=== PATIENT | male | born 1945 | race Caucasian/White ===

== ENCOUNTER 2018-03-19 19:50 | Emergency (ER) | payer MEDICARE, BC, OTHER ==
[~2018-03-19 19:50] MED LIST: ISOVUE-370 76%-LOCM 1 ML ONE
[2018-03-19 20:34] LABS: Bilirubin Negative (Negative); Blood, Urine Negative (Negative); Clarity CLEAR (Clear); Glucose, Urine (Dipstick) Negative (Negative); Leukocyte Negative (Negative); Nitrite Negative (Negative); Protein, Urine (Dipstick) Negative (Neg-Trace); Specific Gravity, Urine 1.011 (1.002-1.036); Urobilinogen 0.2 mg/dL (0.2-1.0)
[2018-03-19] MEDS ORDERED: Morphine 4 MG/ML VIAL ONE (21:13)
[2018-03-19] MEDS ORDERED: Ondansetron HCl/PF 4 MG/2 ML Vial ONE (21:13)
[2018-03-19 22:56] LABS: #Lymphocytes 1.1 thou/uL (1.20-3.40); #Monocytes 0.4 thou/uL (0.11-0.59); %Basophils 0.1 % (0.0-1.0); %Eosinophils 0.2 % (0.0-10.0); %Lymphocytes 20.7 % (21.0-51.0); %Monocytes 6.6 % (0.0-10.0); %Neutrophils 72.4 % (42.0-75.0); Hemoglobin 12.9 g/dL (14.0-18.0); Mean Corpuscular HGB CONC 34.1 g/dL (32.0-36.0); Mean Corpuscular Hemoglobin 36.1 pg (27.0-31.0); Mean Platelet Volume 9.3 fL (7.4-10.4); Platelet Count 239 thou/uL (130-400); RBC Distribution Width 12.9 % (11.5-14.5); Red Blood Cell (RBC) Count 3.58 mill/uL (4.70-6.10); White Blood Cell (WBC) Count 5.5 thou/uL (4.8-10.8)
[2018-03-19 23:15] LABS: ALT (SGPT) 19 U/L (8-55); AST (SGOT) 30 U/L (5-34); Albumin 3.8 g/dL (3.4-4.8); Alkaline Phosphatase 59 U/L (40-150); Anion Gap 15 mmol/L (10-20); BUN (Urea Nitrogen) 19 mg/dL (8.4-25.7); Bilirubin, Total 0.9 mg/dL (0.2-1.2); Calc. Creatinine Clearance 0 mL/min (70-130); Calcium 8.8 mg/dL (7.8-10.44); Carbon Dioxide 20 mmol/L (23-31); Chloride 106 mmol/L (98-107); Estimated GFR-MDRD 42; Globulin 3.4 g/dL (2.4-3.5); Glucose 94 mg/dL (83-110); Lipase 18 U/L (8-78); Protein, Total 7.2 g/dL (5.8-8.1); Sodium 137 mmol/L (136-145)
[2018-03-20] MEDS ORDERED: Ketorolac Tromethamine 30 MG/ML VIAL ONE (00:30)
--- NOTE | 2018-03-20 00:45 | CT ---
CT ABDOMEN WITH CONTRAST CT PELVIS WITH CONTRAST: DATE: 03/19/2018 TIME: 11:36 p.m. HISTORY: A 72-year-old male with left flank pain. COMPARISON: None. TECHNIQUE: IV injection of iodinated contrast media: Decreased dose of 60 mL administered due to low GFR. Oral contrast media: Not administered. FINDINGS: There is a large number of bilateral renal calculi of varying sizes. One of the largest ones is an 8 x 6 x 9 mm calculus, at a right renal upper pole calyx. Calculi are present throughout the upper, m id, and lower poles of both kidneys. The left kidney is larger than the right. There is mild dilati on of all the left renal calyces. The left nephrogram is delayed, compared to the right. There is a s mall to moderate amount of free fluid throughout the left perirenal space. This fluid-edema follows t he left ureter. There is a 5 x 5 x 5 mm calculus lodged within the bladder luminal side of the left UVJ, where there is focal bladder wall swelling. The urinary bladder has normal, thin lewis elsewher e. There are calcifications within the prostate gland. Cholecystectomy clips in the gallbladder fos sa. There is either mild diffuse intrahepatic biliary ductal dilation or edema following the portal triads throughout the liver parenchyma. No hepatic mass lesion or abscess. Atrophic pancreas.. No acute pancreatitis. Abdominal aorta and adrenals are unremarkable. Spleen is absent. No small holly l dilation. No pneumoperitoneum. No definitive evidence of colonic diverticulitis. Anterolisthesis of L5 on S1, stabilized by bilateral L5 and S1 pedicle screws. Laminectomy defect at L5-S1. IMPRESSION: 1. Positive for left-sided obstructive uropathy by a 5 mm calculus lodged at the left ureterovesical unction of the bladder, causing mild left hydronephrosis, delayed left nephrogram, and left perirena l fluid and periureteral fluid, which could represent extravasated urine due to pyelocalyceal blow-ou t. 2. Status post splenectomy. 3. Bilateral nephrolithiasis with a large number of renal calculi. 4. Status post posterior lumbar fusion hardware stabilizing a spondylolisthesis at L5-S1. 5. Status post laminectomy at L5-S1. 6. Status post cholecystectomy. FRANCISCO Rao POS: [facility]IVIDAD
== END 2018-03-20 00:45 | disposition home or self-care (01) ==
LOC: ERS 19:50
DX: N13.2 Hydronephrosis with renal and ureteral calculous obstruction (principal); I25.10 Atherosclerotic heart disease of native coronary artery without angina pectoris; E78.5 Hyperlipidemia, unspecified; Z79.899 Other long term (current) drug therapy; Z79.82 Long term (current) use of aspirin
CPT/HCPCS: 36415; 74177; 80053; 81003; 83690; 85025; 96361; 96374; 96375; J1885; J2270; J2405

== ENCOUNTER 2018-03-26 13:17 | Outpatient (CLI) | payer MEDICARE, BC, OTHER ==
[2018-03-26 14:47] LABS: Bilirubin Negative (Negative); Blood, Urine Negative (Negative); Clarity CLEAR (Clear); Glucose, Urine (Dipstick) Negative (Negative); Leukocyte Negative (Negative); Nitrite Negative (Negative); Protein, Urine (Dipstick) Negative (Neg-Trace); Specific Gravity, Urine 1.007 (1.002-1.036); Urobilinogen 0.2 mg/dL (0.2-1.0)
[2018-03-26 14:49] LABS: Bacteria/HPF None Seen HPF (None Seen); Hyaline Casts/LPF 0-3 HYALINE CAST LPF (0-3 Hyaline); RBC/HPF 0-3 HPF (0-3); Squamous Epithelial None Seen HPF (0-3); WBC/HPF 0-3 HPF (0-3)
[2018-03-26 14:55] LABS: PTT 31.2 SEC (22.9-36.1); Prothrombin Time 13.1 SEC (12.0-14.7)
[2018-03-26 15:02] LABS: Mean Corpuscular HGB CONC 32.9 g/dL (32.0-36.0); Mean Corpuscular Hemoglobin 34.6 pg (27.0-31.0); Mean Platelet Volume 9.1 fL (7.4-10.4); Platelet Count 265 thou/uL (130-400); RBC Distribution Width 13.2 % (11.5-14.5); Red Blood Cell (RBC) Count 3.76 mill/uL (4.70-6.10); White Blood Cell (WBC) Count 3.9 thou/uL (4.8-10.8)
[2018-03-26 15:40] LABS: Anion Gap 16 mmol/L (10-20); BUN (Urea Nitrogen) 16 mg/dL (8.4-25.7); Calc. Creatinine Clearance 0 mL/min (70-130); Calcium 9.7 mg/dL (7.8-10.44); Carbon Dioxide 21 mmol/L (23-31); Chloride 109 mmol/L (98-107); Estimated GFR-MDRD 70; Glucose 90 mg/dL (83-110); Potassium 5.5 mmol/L (3.5-5.1); Sodium 140 mmol/L (136-145)
== END 2018-03-26 13:18 | disposition home or self-care (01) ==
LOC: LABBT 13:17
PROVIDERS: ATTEND Urology
DX: Z01.818 Encounter for other preprocedural examination (principal); N20.0 Calculus of kidney; N40.1 Benign prostatic hyperplasia with lower urinary tract symptoms
CPT/HCPCS: 80048; 81001; 85027; 85610; 85730; 87086; 93005; 93010

== ENCOUNTER → 2018-03-29 | Day surgery (SDC) | payer MEDICARE, BC, OTHER ==
[2018-03-26 15:50] VITALS: BMI 25.7
[~2018-03-29] MED LIST changes: +Dexamethasone 20 MG/5 ML VIAL ONE; +Fentanyl 100 MCG/2 ML VIAL ONE; +Glycopyrrolate 0.2 MG/ML 5 ML SYRINGE ONE; -ISOVUE-370 76%-LOCM 1 ML ONE; +Iothalamate Meglumine 60% 50 ML VIAL FS ONE; +Levofloxacin 500 mg/D5W 100 ml Premix Bag ONE; +Lidocaine 1% PF 5 ML VIAL ONE; +Ondansetron HCl/PF 4 MG/2 ML Vial ONE; +PHENYLEPHRINE-NS 100 MCG/ML 10 ML SYRINGE ONE; +PROPOFOL 200 MG/20 ML VIAL ONE; +ePHEDrine/0.9% NaCl/PF SYRINGE 50 mg/10 ml ONE
[2018-03-29 10:43] LABS: Anion Gap 16 mmol/L (10-20); BUN (Urea Nitrogen) 20 mg/dL (8.4-25.7); Calc. Creatinine Clearance 84 mL/min (70-130); Calcium 9.8 mg/dL (7.8-10.44); Carbon Dioxide 22 mmol/L (23-31); Chloride 108 mmol/L (98-107); Estimated GFR-MDRD 70; Glucose 96 mg/dL (83-110); Potassium 4.7 mmol/L (3.5-5.1); Sodium 141 mmol/L (136-145)
--- NOTE | 2018-03-29 13:00 | OP ---
DATE OF PROCEDURE: 03/29/2018 SERVICE: Urology. SURGEON: Kris Laguna M.D. PREOPERATIVE DIAGNOSIS: Right renal stone. POSTOPERATIVE DIAGNOSIS: Right renal stone. PROCEDURE PERFORMED: Right ureteroscopy, laser lithotripsy, basket extraction of stones and placemen t of 6 x 26 double-J stent with left retrograde pyelogram. INDICATIONS FOR PROCEDURE: Mr. Marin is a 72-year-old white male who initially presented to the ER with left flank pain. He was found to have a 5-mm distal ureteral stone with a pelvocaliceal rupt ure. He ended up passing the stone on the left to his knowledge and on CT, he did have bilateral sto karen with larger stones on the right. We elected for prophylactic ureteroscopy with removal of stones . Risks and benefits of the surgery were discussed and he has agreed to proceed forward. DESCRIPTION OF PROCEDURE: After identification of arm and verification of consent, the patient was b rought back to the operating room where he underwent general anesthesia with an LMA. He was then mushtaq meghan in the dorsal lithotomy position and prepped and draped in usual sterile fashion. After appropri ate timeout, a lubricated 22-Moldovan rigid cystoscope was introduced per urethra into the bladder. At tention was turned to the right ureteral orifice, which was cannulated with a 0.035 sensor wire up to the level of the renal pelvis. The cystoscope was then used to empty the bladder and removed. A du al-lumen catheter was then advanced over the sensor wire into the level of the proximal ureter and a retrograde pyelogram performed, which demonstrated the location of the stone in a relatively isolated mary anne branching off an infundibulum of another mary anne. The Super Stiff wire was then placed through the second lumen of the dual lumen and then the dual lumen removed. A 11/13 x 46 cm ureteral access sheath was advanced over the Super Stiff wire to the level of the proximal ureter. The inner cannula and the Super Stiff wire were then removed leaving the outer sheath and the sensor wire in place as a safety wire. A flexible digital ureteroscope was then passed through the ureteral access sheath up into the renal pelvis and a full pyeloscopy performed. There were small stones located in each aravind x, most of which were just lasered off as they were extremely small. A few of these required basketi ng. We then made our way into the relatively difficult to access upper mary anne, which contained the la rger stones. Using a 200 micron laser fiber, these were lasered down into very small pieces. A few of the larger pieces were removed in their entirety with a 1.9-Moldovan Zero Tip nitinol basket. All f ragments that were over a millimeter were removed with 1.9-Moldovan Zero Tip nitinol basket. Upon comp letion, the mary anne was almost completely clear. There was some debris, but I felt this would pass on its own as they were too small to grab with the basket. Remainder of pyeloscopy did not demonstrate any other large or significant stone disease. Pull back ureteroscopy was employed and no additional stones were seen within the ureter. The cystoscope was then backloaded over the sensor wire back int o the bladder and a 6 x 26 double-J stent with no string attached was advanced over the sensor wire u p to the level of the renal pelvis. The wire was then removed leaving a good curl in the renal pelvi s and good curl in the bladder. The bladder was then emptied and refilled to clear the bladder and a ttention turned to the left ureter, which was cannulated with a dual-lumen catheter. A retrograde py elogram was performed, which demonstrated a normal caliber ureter and renal pelvis without hydronephr osis with sharp calices. An air bubble was noted in the ureter, which immediately cleared upon live fluoro and I did not feel there were any stones on this side within the ureter. He does have known 4 -5 mm stones up in the kidney on the right side, which we elected to deal with at a separate date. T he bladder was otherwise unremarkable without any significant stones. There are some scattered cellu les and grade II trabeculation. The prostate is hypertrophic and the urethra had no other strictures . The cystoscope was then removed after emptying the bladder and the patient awakened and taken to P ACU for recovery in stable condition. COMPLICATIONS: None. ESTIMATED BLOOD LOSS: Minimal. RETAINED TUBES AND DRAINS: A 6 x 26 double-J stent on the right. SPECIMENS: Stone for stone analysis. DISPOSITION: The patient will be discharged home and follow up with me in 1 week for cystoscopy and stent removal.
== END ==
LOC: SDC 07:32
PROVIDERS: ATTEND Urology
PROC: 0TF68ZZ Fragmentation in Right Ureter, Via Natural or Artificial Opening Endoscopic (ICD-10-PCS; principal; 2018-03-29)
PROC: 0T768DZ Dilation of Right Ureter with Intraluminal Device, Via Natural or Artificial Opening Endoscopic (ICD-10-PCS; 2018-03-29)
DX: N20.0 Calculus of kidney (principal); G61.0 Guillain-Barre syndrome; N40.0 Benign prostatic hyperplasia without lower urinary tract symptoms; Z86.73 Personal history of transient ischemic attack (TIA), and cerebral infarction without residual deficits; Z87.891 Personal history of nicotine dependence; Z79.82 Long term (current) use of aspirin; Z79.899 Other long term (current) drug therapy
CPT/HCPCS: 52356; 76000; 80048; 82365; 88300; C1769; 36415; 51798; J1100; J1956; J2001; J2405; J2704; J3010; Q9961

== ENCOUNTER 2018-05-16 08:40 | Outpatient (CLI) | payer MEDICARE, BC, OTHER ==
--- NOTE | 2018-05-16 09:01 | ULT ---
RENAL SONOGRAM: History: Renal insufficiency. FINDINGS: Right kidney is 10.8 cm without hydronephrosis. Shadowing echogenicity at the inferior pole is consis tent with a nonobstructing stone. Urinary bladder is unremarkable. Left kidney is 11.7 cm with a 1.7 cm cyst at the superior pole. Echogencities at the calices are appa rent with posterior shadowing. IMPRESSION: 1. Left renal cyst. 2. Nonobstructing bilateral renal calculi. POS: MARIA LUISA
== END 2018-05-16 08:41 | disposition home or self-care (01) ==
LOC: BICULT 08:40
PROVIDERS: ATTEND Urology
DX: N20.0 Calculus of kidney (principal); N28.1 Cyst of kidney, acquired
CPT/HCPCS: 76770

== ENCOUNTER 2018-05-24 09:39 | Outpatient (CLI) | payer MEDICARE, BC, OTHER ==
--- NOTE | 2018-05-24 10:17 | RAD ---
CERVICAL SPINE SERIES SEVEN VIEWS INCLUDING FLEXION AND EXTENSION AND OBLIQUE VIEWS: FINDINGS: The vertebral bodies are normal in height. There is degenerative disc narrowing at C5-6 and C6-7. The re are degenerative facet changes present. On flexion and extension views I do not appreciate any abn ormal motion. Oblique views show suggestion of some right sided foraminal narrowing at C5-6 and C6-7. IMPRESSION: Arthritic changes of the spine. POS: [facility]
--- NOTE | 2018-05-24 11:25 | MRI ---
MRI CERVICAL SPINE PERFORMED WITHOUT CONTRAST ENHANCEMENT: History: Neck pain with radiculopathy. Pain has been getting progressively worse. Comparison: 01-27-17 examination. FINDINGS: The vertebral bodies are normal in height. There is disc narrowing at the C5-6 and C6-7 levels. Cord signal change is normal. C2-3: Unremarkable. C3-4: No significant canal or foraminal stenosis. C4-5: There is some posterior osteophytic change at this level. Degenerative facet changes also prese nt with some borderline left foraminal narrowing. C5-6: There is posterior osteophytic bar and disc changes at this level. Uncal vertebral changes are also present. The canal shows a minimal degree of narrowing. There is mild bilateral foraminal narrow ing. I feel the changes are fairly similar to the previous exam. C6-7: No significant canal or foraminal stenosis at this level. C7-T1: Unremarkable. IMPRESSION: Posterior osteophytic changes at C5-6 also uncal vertebral changes causing some mild bilateral forami nal narrowing and some borderline canal stenosis. POS: NATIVIDAD
== END 2018-05-24 09:40 | disposition home or self-care (01) ==
LOC: BICMRI 09:39
PROVIDERS: ATTEND Anesthesiology Pain Medicine
DX: M47.22 Other spondylosis with radiculopathy, cervical region (principal); M46.92 Unspecified inflammatory spondylopathy, cervical region; M25.78 Osteophyte, vertebrae; M48.02 Spinal stenosis, cervical region
CPT/HCPCS: 72052; 72141

== ENCOUNTER 2020-10-30 17:57 | Inpatient (IN) | payer MEDICARE, BC, OTHER ==
[2020-10-30 19:00] LABS: Hemoglobin 10.2 g/dL (14.0-18.0); Mean Corpuscular Hemoglobin 36.6 pg (27.0-31.0); Platelet Count 376 thou/uL (130-400); RBC Distribution Width 14.8 % (11.5-14.5); Red Blood Cell (RBC) Count 2.78 mill/uL (4.70-6.10); White Blood Cell (WBC) Count 7.2 thou/uL (4.8-10.8)
[2020-10-30 19:21] LABS: Band 7 % (5-11); Eosinophils 2 % (0-10); Lymphocytes 21 % (21-51); MDiff Complete? YES; Macrocytosis SLIGHT = 6-15 cells (100X) (0-5/hpf); Monocytes 7 % (0-10); Neutrophil 55 % (42-75); Nucleated RBC 1 % (0); Reactive Lymphocytes 8 % (0-10); Rouleaux Formation SLIGHT = 1-5 cells (100X) (None Seen)
[2020-10-30 19:24] LABS: ALT (SGPT) 426 U/L (8-55); AST (SGOT) 573 U/L (5-34); Albumin 3.6 g/dL (3.4-4.8); Alkaline Phosphatase 157 U/L (40-110); Anion Gap 14 mmol/L (10-20); BUN (Urea Nitrogen) 58 mg/dL (8.4-25.7); Bilirubin, Total 0.4 mg/dL (0.2-1.2); Calc. Creatinine Clearance 0 mL/min (70-130); Calcium 10.3 mg/dL (7.8-10.44); Carbon Dioxide 24 mmol/L (23-31); Chloride 106 mmol/L (98-107); Globulin 4.4 g/dL (2.4-3.5); Glucose 110 mg/dL (83-110); Lipase 63 U/L (8-78); Magnesium 2.2 mg/dL (1.6-2.6); Sodium 139 mmol/L (136-145)
[2020-10-30 19:39] LABS: CK (CPK) 7817 U/L (30-200)
[2020-10-30 19:49] LABS: CKMB 54.7 ng/mL (0-6.6)
[2020-10-30] MEDS ORDERED: Morphine 4 MG/ML VIAL ONE (21:32)
[2020-10-30] MEDS ORDERED: Sodium Chloride 0.9% 1,000 ML IV SCH (22:00)
[2020-10-30] MEDS ORDERED: Ondansetron PF 4 MG/2 ML Vial IVP PRN ×2 (22:00→22:04)
[2020-10-30] MEDS ORDERED: Ondansetron ODT 4 MG TAB SL PRN (22:00)
[2020-10-30] MEDS ORDERED: Loperamide HCl 2 MG CAP PO PRN (22:04)
[2020-10-30] MEDS ORDERED: Guaifenesin DM 100-10/5 ML UDCUP PO PRN (22:04)
[2020-10-30] MEDS ORDERED: Calcium Carbonate 500 MG ChewTAB PO PRN (22:04)
[2020-10-30] MEDS ORDERED: Bisacodyl 10 MG SUPP PR PRN (22:04)
[2020-10-30 22:20] LABS: Bilirubin Negative (Negative); Blood, Urine 3+ (Negative); Clarity Clear (Clear); Glucose, Urine (Dipstick) Normal (Negative); Ketone, Urine Negative (Negative); Leukocyte Negative Leu/uL (Negative); Nitrite Negative (Negative); Protein, Urine (Dipstick) 50 mg/dL (Neg-Trace); RBC/HPF 0-3 HPF (0-3); Specific Gravity, Urine 1.011 (1.002-1.036); Squamous Epithelial 0-3 HPF (0-3); Urobilinogen Normal mg/dL (Less than 2); WBC/HPF 0-3 HPF (0-3); pH, Urine 5.5 (5.0-9.0)
[2020-10-30 22:23] LABS: Bacteria/HPF 1+ HPF (None Seen)
[2020-10-30] MEDS ORDERED: Ondansetron PF 4 MG/2 ML Vial ONE (22:49)
[2020-10-30] MEDS: Ondansetron ODT 4 MG TAB PO PRN (22:59)
[2020-10-30] MEDS: Sodium Chloride 0.9% 1,000 ML IV SCH (23:55)
[2020-10-31 01:30] LABS: Troponin I 0.053 ng/mL (< 0.028)
[2020-10-31 01:54] LABS: SARS-CoV-2 PCR by NAA Not Detected (NotDetected)
[2020-10-31] MEDS ORDERED: Acetaminophen 325 MG TAB ONE (04:08)
[2020-10-31] MEDS: Acetaminophen 325 MG TAB PO PRN ×3 (04:15→19:02)
[2020-10-31 05:37] LABS: ALT (SGPT) 354 U/L (8-55); AST (SGOT) 461 U/L (5-34); Albumin 3.2 g/dL (3.4-4.8); Alkaline Phosphatase 139 U/L (40-110); Anion Gap 16 mmol/L (10-20); BUN (Urea Nitrogen) 53 mg/dL (8.4-25.7); Bilirubin, Total 0.4 mg/dL (0.2-1.2); Calc. Creatinine Clearance 0 mL/min (70-130); Calcium 9.6 mg/dL (7.8-10.44); Carbon Dioxide 19 mmol/L (23-31); Chloride 111 mmol/L (98-107); Globulin 4.3 g/dL (2.4-3.5); Glucose 109 mg/dL (83-110); Potassium 4.8 mmol/L (3.5-5.1); Protein, Total 7.5 g/dL (5.8-8.1); Sodium 141 mmol/L (136-145)
[2020-10-31 05:46] LABS: #Eosinphils 0.1 thou/uL (0.0-0.7); #Lymphocytes 2.6 thou/uL (1.20-3.40); #Monocytes 0.4 thou/uL (0.11-0.59); #Neutrophils 3.8 thou/uL (1.40-6.50); %Basophils 0.2 % (0.0-1.0); %Eosinophils 1.5 % (0.0-10.0); %Lymphocytes 37.8 % (21.0-51.0); %Monocytes 5.6 % (0.0-10.0); Hemoglobin 9.4 g/dL (14.0-18.0); Mean Corpuscular HGB CONC 32.4 g/dL (32.0-36.0); Mean Corpuscular Hemoglobin 36.1 pg (27.0-31.0); Platelet Count 394 thou/uL (130-400); RBC Distribution Width 14.9 % (11.5-14.5)
[2020-10-31 05:51] LABS: CK (CPK) 6999 U/L (30-200)
[2020-10-31 05:57] LABS: Thyroid Stimulating Hormone 1.1499 uIU/mL (0.35-4.94)
[2020-10-31 05:58] LABS: HBSAg Index 0.14 S/CO (0-0.99); Hep B Surf Ag Non-Reactive S/CO (NonReactive); Hep C IgG Ab Non-Reactive (NonReactive); Hep C Index 0.04 S/CO (0-0.79)
[2020-10-31 05:59] LABS: Hep A IgM AB Non-Reactive (NonReactive); Hep A IgM S/CO 0.12 S/CO (0-0.79)
[2020-10-31 06:00] LABS: HBCM Index 0.06 S/CO (0-0.79); Hepatitis B Core IgM Abs Non-Reactive (NonReactive)
[2020-10-31] MEDS: Sodium Chloride 0.9% 1,000 ML IV SCH ×4 (07:30→23:21)
[2020-10-31] MEDS ORDERED: Acetaminophen 325 MG TAB PO PRN (08:56)
[2020-10-31] MEDS ORDERED: HYDROcodone/Acetaminophen 5/325 mg Tablet PO PRN (08:56)
[2020-10-31 09:24] LABS: Vitamin B12 681 pg/mL (211-911)
[2020-10-31] MEDS ORDERED: Famotidine 20 MG TAB ONE (09:29)
[2020-10-31] MEDS ORDERED: HYDROcodone/Acetaminophen 5/325 mg Tablet ONE (09:33)
[2020-10-31] MEDS: Famotidine 20 MG TAB PO SCH (09:37)
[2020-10-31] MEDS: Heparin 5,000 UNITS/ML VIAL SC SCH ×2 (09:38→21:19)
[2020-10-31] MEDS: Tamsulosin HCl 0.4 MG CAP PO SCH (09:43)
[2020-10-31] MEDS: Morphine 4 MG/ML VIAL SLOW IVP PRN ×3 (12:49→21:22)
[2020-10-31 13:09] VITALS: BMI 28.4
[2020-10-31] MEDS: Senokot S 8.6-50 MG TAB PO PRN (15:23)
[2020-10-31 21:33] LABS: Creatinine, Urine 46.06 mg/dL (63-166)
[2020-10-31 21:34] LABS: Protein, Urine Random Quant 39 mg/dL (1-14); Sodium, Urine 63 mmol/L (Not Available)
[2020-10-31] MEDS: HYDROcodone/Acetaminophen 7.5/325 mg Tablet PO PRN (23:19)
[2020-11-01 01:13] LABS: Anion Gap 11 mmol/L (10-20); BUN (Urea Nitrogen) 40 mg/dL (8.4-25.7); Calc. Creatinine Clearance 42 mL/min (70-130); Calcium 9.7 mg/dL (7.8-10.44); Carbon Dioxide 18 mmol/L (23-31); Chloride 116 mmol/L (98-107); Glucose 107 mg/dL (83-110); Potassium 4.4 mmol/L (3.5-5.1); Sodium 141 mmol/L (136-145)
[2020-11-01 01:18] LABS: Troponin I 0.118 ng/mL (< 0.028)
[2020-11-01 01:36] LABS: #Basophils 0.1 thou/uL (0.0-0.2); #Lymphocytes 1.2 thou/uL (1.20-3.40); #Monocytes 0.3 thou/uL (0.11-0.59); #Neutrophils 2.9 thou/uL (1.40-6.50); %Basophils 2.8 % (0.0-1.0); %Lymphocytes 25.5 % (21.0-51.0); %Monocytes 7.4 % (0.0-10.0); %Neutrophils 63.3 % (42.0-75.0); Hemoglobin 9.7 g/dL (14.0-18.0); Mean Corpuscular Hemoglobin 37.8 pg (27.0-31.0); Mean Platelet Volume 7.9 fL (7.4-10.4); Platelet Count 343 thou/uL (130-400); RBC Distribution Width 14.8 % (11.5-14.5); RBC Morphology Normal; Red Blood Cell (RBC) Count 2.55 mill/uL (4.70-6.10); White Blood Cell (WBC) Count 4.6 thou/uL (4.8-10.8)
[2020-11-01 01:41] LABS: Thyroid Stimulating Hormone 0.5385 uIU/mL (0.35-4.94)
[2020-11-01 03:29] LABS: T4 7.1 ug/dL (4.87-11.72)
[2020-11-01] MEDS: Ondansetron ODT 4 MG TAB PO PRN (04:37)
[2020-11-01 05:04] LABS: ALT (SGPT) 308 U/L (8-55); AST (SGOT) 321 U/L (5-34); Alkaline Phosphatase 117 U/L (40-110); Anion Gap 17 mmol/L (10-20); BUN (Urea Nitrogen) 37 mg/dL (8.4-25.7); Bilirubin, Total 0.5 mg/dL (0.2-1.2); CK (CPK) 3109 U/L (30-200); Calc. Creatinine Clearance 43 mL/min (70-130); Calcium 9.8 mg/dL (7.8-10.44); Carbon Dioxide 13 mmol/L (23-31); Chloride 117 mmol/L (98-107); Globulin 4.1 g/dL (2.4-3.5); Glucose 94 mg/dL (83-110); Potassium 4.9 mmol/L (3.5-5.1); Protein, Total 7.1 g/dL (5.8-8.1); Sodium 142 mmol/L (136-145)
[2020-11-01] MEDS: HYDROcodone/Acetaminophen 7.5/325 mg Tablet PO PRN (05:21)
[2020-11-01] MEDS: Sodium Chloride 0.9% 1,000 ML IV SCH ×4 (06:16→17:34)
[2020-11-01] MEDS ORDERED: Polyethylene Glycol 3350 17 GM Packet PO PRN (08:09)
[2020-11-01 08:34] LABS: Band 2 % (5-11); Eosinophils 1 % (0-10); Hemoglobin 9.6 g/dL (14.0-18.0); Lymphocytes 21 % (21-51); MDiff Complete? YES; Macrocytosis SLIGHT = 6-15 cells (100X) (0-5/hpf); Mean Corpuscular HGB CONC 33.2 g/dL (32.0-36.0); Mean Platelet Volume 8.1 fL (7.4-10.4); Monocytes 4 % (0-10); Neutrophil 72 % (42-75); Platelet Count 343 thou/uL (130-400); RBC Distribution Width 14.9 % (11.5-14.5); Red Blood Cell (RBC) Count 2.59 mill/uL (4.70-6.10); Spherocytes SLIGHT = 1-5 cells (100X) (None Seen); White Blood Cell (WBC) Count 6.2 thou/uL (4.8-10.8)
[2020-11-01] MEDS: Famotidine 20 MG TAB PO SCH (09:36)
[2020-11-01] MEDS: Tamsulosin HCl 0.4 MG CAP PO SCH (09:36)
[2020-11-01] MEDS: Allopurinol 100 MG TAB PO SCH (09:37)
[2020-11-01] MEDS: Pregabalin 50 MG CAP PO SCH ×3 (09:37→21:36)
[2020-11-01] MEDS: Docusate 100 MG CAP PO PRN (09:37)
[2020-11-01] MEDS: Apixaban 5 MG TAB PO SCH ×2 (09:38→21:38)
[2020-11-01] MEDS: HYDROcodone/Acetaminophen 10/325 mg Tablet PO PRN ×3 (13:07→21:37)
[2020-11-01] MEDS: Dronedarone HCl 400 MG TAB PO SCH (16:39)
[2020-11-01] MEDS: Sodium Bicarbonate Tab 325 MG TAB PO SCH (21:38)
[2020-11-02] MEDS: Sodium Chloride 0.9% 1,000 ML IV SCH ×4 (03:28→23:46)
[2020-11-02 04:51] LABS: Hemoglobin 9.3 g/dL (14.0-18.0); Mean Corpuscular HGB CONC 34.5 g/dL (32.0-36.0); Mean Corpuscular Hemoglobin 38.5 pg (27.0-31.0); Platelet Count 351 thou/uL (130-400); RBC Distribution Width 14.6 % (11.5-14.5)
[2020-11-02 05:05] LABS: ALT (SGPT) 220 U/L (8-55); AST (SGOT) 181 U/L (5-34); Albumin 2.7 g/dL (3.4-4.8); Alkaline Phosphatase 94 U/L (40-110); Anion Gap 12 mmol/L (10-20); BUN (Urea Nitrogen) 31 mg/dL (8.4-25.7); Bilirubin, Total 0.5 mg/dL (0.2-1.2); CK (CPK) 1533 U/L (30-200); Calc. Creatinine Clearance 47 mL/min (70-130); Calcium 9.4 mg/dL (7.8-10.44); Carbon Dioxide 18 mmol/L (23-31); Chloride 118 mmol/L (98-107); Globulin 3.4 g/dL (2.4-3.5); Glucose 88 mg/dL (83-110); Potassium 4.1 mmol/L (3.5-5.1); Protein, Total 6.1 g/dL (5.8-8.1); Sodium 144 mmol/L (136-145)
[2020-11-02 05:19] LABS: Band 2 % (5-11); Eosinophils 1 % (0-10); Lymphocytes 33 % (21-51); MDiff Complete? YES; Macrocytosis SLIGHT = 6-15 cells (100X) (0-5/hpf); Monocytes 11 % (0-10); Neutrophil 53 % (42-75)
[2020-11-02] MEDS: HYDROcodone/Acetaminophen 10/325 mg Tablet PO PRN ×4 (06:13→23:28)
[2020-11-02] MEDS: Dronedarone HCl 400 MG TAB PO SCH ×2 (09:00→17:05)
[2020-11-02] MEDS: Sodium Bicarbonate Tab 325 MG TAB PO SCH ×3 (09:00→20:06)
[2020-11-02] MEDS: Allopurinol 100 MG TAB PO SCH (09:01)
[2020-11-02] MEDS: Tamsulosin HCl 0.4 MG CAP PO SCH (09:01)
[2020-11-02] MEDS: Famotidine 20 MG TAB PO SCH (09:01)
[2020-11-02] MEDS: Pregabalin 50 MG CAP PO SCH ×3 (09:01→20:07)
[2020-11-02] MEDS: Apixaban 5 MG TAB PO SCH ×2 (09:02→20:06)
[2020-11-02] MEDS: Docusate 100 MG CAP PO PRN ×2 (09:03→17:05)
[2020-11-02] MEDS: Lidocaine 5% Patch TD SCH (20:14)
[2020-11-03] MEDS: Sodium Chloride 0.9% 1,000 ML IV SCH ×3 (03:40→16:21)
[2020-11-03] MEDS: HYDROcodone/Acetaminophen 10/325 mg Tablet PO PRN ×2 (03:41→08:29)
[2020-11-03 08:23] LABS: Anion Gap 18 mmol/L (10-20); BUN (Urea Nitrogen) 29 mg/dL (8.4-25.7); Calc. Creatinine Clearance 47 mL/min (70-130); Calcium 10.1 mg/dL (7.8-10.44); Carbon Dioxide 16 mmol/L (23-31); Chloride 112 mmol/L (98-107); Glucose 108 mg/dL (83-110); Potassium 4.9 mmol/L (3.5-5.1); Sodium 141 mmol/L (136-145)
[2020-11-03] MEDS: Dronedarone HCl 400 MG TAB PO SCH ×2 (08:27→16:20)
[2020-11-03] MEDS: Pregabalin 50 MG CAP PO SCH ×3 (08:28→19:58)
[2020-11-03] MEDS: Sodium Bicarbonate Tab 325 MG TAB PO SCH ×3 (08:28→19:59)
[2020-11-03] MEDS: Famotidine 20 MG TAB PO SCH (08:28)
[2020-11-03] MEDS: Allopurinol 100 MG TAB PO SCH (08:29)
[2020-11-03] MEDS: Tamsulosin HCl 0.4 MG CAP PO SCH (08:29)
[2020-11-03] MEDS: Apixaban 5 MG TAB PO SCH ×2 (08:29→19:59)
[2020-11-03] MEDS: Docusate 100 MG CAP PO PRN (08:31)
[2020-11-03] MEDS: Lidocaine Patch Removal TOP SCH (08:38)
[2020-11-03] MEDS: Acetaminophen 325 MG TAB PO PRN ×3 (15:10→23:55)
[2020-11-03 15:22] LABS: Albumin-Ur 10.4 % (.); Alpha 2 - Ur 21.6 % (.); Beta-Ur 43.4 % (.); Gamma-Ur 19.6 % (.); M-Spike,% Note: % (Not Observed)
[2020-11-03 15:22] LABS: A/G Ratio 0.7 (0.7-1.7); Albumin 2.9 g/dL (2.9-4.4); Alpha 1 0.3 g/dL (0.0-0.4); Alpha 2 0.8 g/dL (0.4-1.0); Beta 2.6 g/dL (0.7-1.3); Gamma 0.3 g/dL (0.4-1.8); Globulin, Total 4.1 g/dL (2.2-3.9); M-Spike 1.9 g/dL (Not Observed)
[2020-11-03] MEDS: cefTRIAXone\\ROCEPHIN 1 GM in Sodium Chloride 0.9% 100 ML IVPB SCH (18:03)
[2020-11-03 19:40] LABS: Bilirubin Negative (Negative); Blood, Urine 1+ (Negative); Clarity Clear (Clear); Glucose, Urine (Dipstick) Normal (Negative); Ketone, Urine Negative (Negative); Leukocyte Negative Leu/uL (Negative); Nitrite Negative (Negative); Protein, Urine (Dipstick) Negative (Neg-Trace); RBC/HPF 0-3 HPF (0-3); Squamous Epithelial None Seen HPF (0-3); Urobilinogen Normal mg/dL (Less than 2); WBC/HPF 0-3 HPF (0-3); pH, Urine 5.5 (5.0-9.0)
[2020-11-03 19:41] LABS: Bacteria/HPF 1+ HPF (None Seen)
[2020-11-03 19:42] LABS: Urine Culture Reflex Yes Yes
[2020-11-03] MEDS: Lidocaine 5% Patch TD SCH (19:59)
[2020-11-04] MEDS: Sodium Chloride 0.9% 1,000 ML IV SCH (03:15)
[2020-11-04] MEDS: HYDROcodone/Acetaminophen 10/325 mg Tablet PO PRN ×4 (03:28→19:30)
[2020-11-04 05:11] LABS: Anion Gap 15 mmol/L (10-20); BUN (Urea Nitrogen) 27 mg/dL (8.4-25.7); Calc. Creatinine Clearance 46 mL/min (70-130); Calcium 9.7 mg/dL (7.8-10.44); Carbon Dioxide 20 mmol/L (23-31); Chloride 111 mmol/L (98-107); Glucose 87 mg/dL (83-110); Potassium 3.8 mmol/L (3.5-5.1); Sodium 142 mmol/L (136-145)
[2020-11-04 05:45] LABS: Hemoglobin 8.7 g/dL (14.0-18.0); Mean Corpuscular HGB CONC 32.5 g/dL (32.0-36.0); Mean Platelet Volume 8.2 fL (7.4-10.4); Platelet Count 341 thou/uL (130-400); RBC Distribution Width 14.5 % (11.5-14.5); Red Blood Cell (RBC) Count 2.43 mill/uL (4.70-6.10); White Blood Cell (WBC) Count 5.2 thou/uL (4.8-10.8)
[2020-11-04 08:43] LABS: ALT (SGPT) 183 U/L (8-55); AST (SGOT) 121 U/L (5-34); Alkaline Phosphatase 87 U/L (40-110); Bilirubin, Direct 0.2 mg/dL (0.1-0.3); Bilirubin, Total 0.4 mg/dL (0.2-1.2); CK (CPK) 405 U/L (30-200); Protein, Total 6.3 g/dL (5.8-8.1)
[2020-11-04] MEDS: Acetaminophen 325 MG TAB PO PRN ×2 (08:57→16:21)
[2020-11-04] MEDS: Allopurinol 100 MG TAB PO SCH (08:58)
[2020-11-04] MEDS: Famotidine 20 MG TAB PO SCH (08:58)
[2020-11-04] MEDS: Tamsulosin HCl 0.4 MG CAP PO SCH (08:58)
[2020-11-04] MEDS: Apixaban 5 MG TAB PO SCH ×2 (08:58→20:15)
[2020-11-04] MEDS: Sodium Bicarbonate Tab 325 MG TAB PO SCH ×3 (08:58→20:15)
[2020-11-04] MEDS: Dronedarone HCl 400 MG TAB PO SCH ×2 (08:58→16:20)
[2020-11-04] MEDS: Pregabalin 50 MG CAP PO SCH ×3 (08:59→20:15)
[2020-11-04] MEDS: Lidocaine Patch Removal TOP SCH (09:00)
[2020-11-04] MEDS: Senokot S 8.6-50 MG TAB PO PRN (11:38)
[2020-11-04] MEDS: Docusate 100 MG CAP PO PRN (11:39)
[2020-11-04] MEDS: cefTRIAXone\\ROCEPHIN 1 GM in Sodium Chloride 0.9% 100 ML IVPB SCH (16:22)
[2020-11-04] MEDS: Lidocaine 5% Patch TD SCH (20:17)
[2020-11-04] MEDS: Piperacillin/Tazobactam 3.375 GM in Sodium Chloride 0.9% 100 ML IVPB SCH (21:45)
[2020-11-05] MEDS: Piperacillin/Tazobactam 3.375 GM in Sodium Chloride 0.9% 100 ML IVPB SCH ×3 (03:58→15:01)
[2020-11-05] MEDS: HYDROcodone/Acetaminophen 10/325 mg Tablet PO PRN ×3 (04:36→14:59)
[2020-11-05] MEDS: Senokot S 8.6-50 MG TAB PO PRN (08:43)
[2020-11-05] MEDS: Sodium Bicarbonate Tab 325 MG TAB PO SCH ×2 (08:43→14:59)
[2020-11-05] MEDS: Famotidine 20 MG TAB PO SCH (08:44)
[2020-11-05] MEDS: Apixaban 5 MG TAB PO SCH (08:44)
[2020-11-05] MEDS: Pregabalin 50 MG CAP PO SCH ×2 (08:44→15:00)
[2020-11-05] MEDS: Lidocaine Patch Removal TOP SCH (08:45)
[2020-11-05] MEDS: Allopurinol 100 MG TAB PO SCH (08:45)
[2020-11-05] MEDS: Tamsulosin HCl 0.4 MG CAP PO SCH (08:45)
[2020-11-05] MEDS: Dronedarone HCl 400 MG TAB PO SCH (08:45)
[2020-11-05 12:01] VITALS: BP 112/60; TEMP 98.1
[2020-11-05 13:03] LABS: Anion Gap 15 mmol/L (10-20); BUN (Urea Nitrogen) 32 mg/dL (8.4-25.7); Calc. Creatinine Clearance 45 mL/min (70-130); Calcium 8.4 mg/dL (7.8-10.44); Carbon Dioxide 22 mmol/L (23-31); Chloride 108 mmol/L (98-107); Glucose 99 mg/dL (83-110); Potassium 3.7 mmol/L (3.5-5.1); Sodium 141 mmol/L (136-145)
== END 2020-11-05 17:33 | disposition home or self-care (01) | DRG 682 ==
LOC: ERS 17:57 → ERHOLD 21:04 → 2NO 10-31 12:44
PROVIDERS: ADMIT Internal Medicine; ATTEND Internal Medicine
DX: N17.9 Acute kidney failure, unspecified (principal); I21.A1 Myocardial infarction type 2; M62.82 Rhabdomyolysis; G61.0 Guillain-Barre syndrome; E87.2 Acidosis; C90.00 Multiple myeloma not having achieved remission; I48.3 Typical atrial flutter; I48.19 Other persistent atrial fibrillation; C79.51 Secondary malignant neoplasm of bone; M84.58XA Pathological fracture in neoplastic disease, other specified site, initial encounter for fracture; I25.10 Atherosclerotic heart disease of native coronary artery without angina pectoris; E78.5 Hyperlipidemia, unspecified; E78.00 Pure hypercholesterolemia, unspecified; Z20.822 Contact with and (suspected) exposure to COVID-19; D53.9 Nutritional anemia, unspecified; G89.29 Other chronic pain; N18.4 Chronic kidney disease, stage 4 (severe); E87.5 Hyperkalemia; N40.0 Benign prostatic hyperplasia without lower urinary tract symptoms; I48.0 Paroxysmal atrial fibrillation; I12.9 Hypertensive chronic kidney disease with stage 1 through stage 4 chronic kidney disease, or unspecified chronic kidney disease; D63.0 Anemia in neoplastic disease; N13.2 Hydronephrosis with renal and ureteral calculous obstruction; K21.9 Gastro-esophageal reflux disease without esophagitis; E86.0 Dehydration; K59.00 Constipation, unspecified; Z95.5 Presence of coronary angioplasty implant and graft; Z90.49 Acquired absence of other specified parts of digestive tract; Z79.82 Long term (current) use of aspirin; Z79.899 Other long term (current) drug therapy; Z86.73 Personal history of transient ischemic attack (TIA), and cerebral infarction without residual deficits; Z98.1 Arthrodesis status
CPT/HCPCS: 36415; 36416; 71045; 71250; 74018; 74176; 76705; 80048; 80053; 80074; 80076; 81001; 81003; 81015; 82232; 82248; 82550; 82553; 82570; 82607; 82746; 83615; 83690; 83735; 83880; 83883; 84100; 84156; 84165; 84166; 84300; 84436; 84443; 84484; 84550; 85025; 85027; 86334; 87040; 87086; 87635; 93005; 93010; 93306; 96374; J0696; J1644; J2270; J2405; J2543; J3490; Q0162; U0003; U0005

== ENCOUNTER 2020-11-06 08:12 | Outpatient (CLI) | payer MEDICARE, BC, OTHER | END 2020-11-06 08:13 | disposition home or self-care (01) | LOC: PET 08:12 | PROVIDERS: ATTEND Internal Medicine Hematology & Oncology | DX: C90.00 Multiple myeloma not having achieved remission (principal); C79.51 Secondary malignant neoplasm of bone | CPT/HCPCS: 78816; A9552 ==

== ENCOUNTER 2020-11-11 08:14 | Day surgery (SDC) | payer MEDICARE, BC, OTHER ==
[2020-11-06 12:12] VITALS: BMI 28.2
[2020-11-11 08:54] LABS: INR-International Normal Ratio 1.3; Prothrombin Time 16.1 sec (12.0-14.7)
[2020-11-11 11:05] VITALS: BP 108/66; TEMP 98
== END 2020-11-11 12:00 | disposition home or self-care (01) ==
LOC: CT 08:14
PROVIDERS: ATTEND Internal Medicine Hematology & Oncology
PROC: 07DR3ZX Extraction of Iliac Bone Marrow, Percutaneous Approach, Diagnostic (ICD-10-PCS; principal; 2020-11-11)
DX: C90.00 Multiple myeloma not having achieved remission (principal); I48.91 Unspecified atrial fibrillation; M19.90 Unspecified osteoarthritis, unspecified site; K21.9 Gastro-esophageal reflux disease without esophagitis; G61.0 Guillain-Barre syndrome; Z86.73 Personal history of transient ischemic attack (TIA), and cerebral infarction without residual deficits; Z79.01 Long term (current) use of anticoagulants; Z79.82 Long term (current) use of aspirin; Z79.899 Other long term (current) drug therapy; Z95.5 Presence of coronary angioplasty implant and graft
CPT/HCPCS: 20225; 77012; 85097; 85610; 85730; 88184; 88237; 88264; 88280; 88305; 88311; 88313; 88342; 88365

== ENCOUNTER 2020-12-18 08:51 | Day surgery (SDC) | payer MEDICARE, BC, OTHER ==
[2020-12-18] MEDS ORDERED: Acetaminophen 500 MG TAB PO SCH (09:00)
[2020-12-18] MEDS ORDERED: diphenhydrAMINE 25 MG CAP PO SCH (09:00)
[2020-12-18] MEDS ORDERED: Sodium Chloride 0.9% 20 ML ONE (09:21)
[2020-12-18 12:17] VITALS: BP 96/52; TEMP 98.1
== END 2020-12-18 12:18 | disposition home or self-care (01) ==
LOC: ONC/OP 08:51
PROVIDERS: ATTEND Internal Medicine Hematology & Oncology
PROC: 30233N1 Transfusion of Nonautologous Red Blood Cells into Peripheral Vein, Percutaneous Approach (ICD-10-PCS; principal; 2020-12-18)
DX: D64.9 Anemia, unspecified (principal); D69.6 Thrombocytopenia, unspecified
CPT/HCPCS: 36430; 86850; 86900; 86901; J1642; P9016; Q0163

== ENCOUNTER 2021-08-03 12:04 | Outpatient (CLI) | payer MEDICARE, BC, OTHER ==
[2021-08-03 13:29] LABS: Hemoglobin 12.7 g/dL (13.5-17.5); Mean Corpuscular HGB CONC 32.2 g/dL (32.0-36.0); Mean Corpuscular Hemoglobin 34.5 pg (27.0-33.0); Mean Corpuscular Volume 107.3 fl (81.2-95.1); Mean Platelet Volume 10.8 fl (7.4-10.4); Platelet Count 257 10x3/uL (150-450); RBC Distribution Width 12.7 % (11.5-14.5); Red Blood Cell (RBC) Count 3.68 10x6/uL (4.32-5.72); White Blood Cell (WBC) Count 5.5 10x3/uL (3.5-10.5)
[2021-08-03 13:33] LABS: Prothrombin Time 11.1 sec (9.5-12.1)
[2021-08-03 13:40] LABS: Anion Gap 13 mmol/L (10-20); BUN (Urea Nitrogen) 24 mg/dL (8.4-25.7); Calc. Creatinine Clearance 0 mL/min (70-130); Carbon Dioxide 23 mmol/L (23-31); Chloride 110 mmol/L (98-107); Glucose 109 mg/dL (83-110); Sodium 141 mmol/L (136-145)
[2021-08-04 00:02] LABS: SARS-CoV-2 PCR by NAA Not Detected (NotDetected)
== END 2021-08-03 12:05 | disposition home or self-care (01) ==
LOC: LABBT 12:04
PROVIDERS: ATTEND Internal Medicine Cardiovascular Disease
DX: Z01.812 Encounter for preprocedural laboratory examination (principal); I48.3 Typical atrial flutter; Z20.822 Contact with and (suspected) exposure to COVID-19
CPT/HCPCS: 80048; 85027; 85610; U0003; U0005

== ENCOUNTER 2021-08-05 07:12 | Day surgery (SDC) | payer MEDICARE, BC, OTHER ==
[2021-08-02 15:16] VITALS: BMI 27.6
[2021-08-05] MEDS ORDERED: Heparin 10,000 UNITS/ 10 ML VIAL ONE (08:34)
[2021-08-05] MEDS ORDERED: Lidocaine 1% PF 5 ML VIAL ONE (09:36)
[2021-08-05] MEDS ORDERED: ePHEDrine 50 MG/ML VIAL ONE (09:36)
[2021-08-05] MEDS ORDERED: Propofol 500 MG/50 ML VIAL ONE (09:55)
[2021-08-05] MEDS ORDERED: PROPOFOL 20 ML ONE (10:35)
[2021-08-05] MEDS ORDERED: Fentanyl 100 MCG/2 ML VIAL ONE (11:47)
== END 2021-08-05 15:44 | disposition home or self-care (01) ==
LOC: SDC 07:12
PROVIDERS: ATTEND Internal Medicine Cardiovascular Disease
PROC: 4A023FZ Measurement of Cardiac Rhythm, Percutaneous Approach (ICD-10-PCS; principal; 2021-08-05)
PROC: 4A0234Z Measurement of Cardiac Electrical Activity, Percutaneous Approach (ICD-10-PCS; 2021-08-05)
PROC: 02583ZZ Destruction of Conduction Mechanism, Percutaneous Approach (ICD-10-PCS; 2021-08-05)
PROC: 02K83ZZ Map Conduction Mechanism, Percutaneous Approach (ICD-10-PCS; 2021-08-05)
PROC: B24BZZ4 Ultrasonography of Heart with Aorta, Transesophageal (ICD-10-PCS; 2021-08-05)
DX: I48.3 Typical atrial flutter (principal); I48.0 Paroxysmal atrial fibrillation; I25.10 Atherosclerotic heart disease of native coronary artery without angina pectoris; E78.5 Hyperlipidemia, unspecified; G89.29 Other chronic pain; M54.9 Dorsalgia, unspecified; Z79.01 Long term (current) use of anticoagulants; Z79.899 Other long term (current) drug therapy; Z87.891 Personal history of nicotine dependence; Z95.5 Presence of coronary angioplasty implant and graft
CPT/HCPCS: 93005; 93312; 93613; 93653; C1731; C1894; C2630; J1644; J2704; J3010; J3490

== ENCOUNTER 2022-01-13 10:15 | Outpatient (CLI) | payer MEDICARE, BC, OTHER | END 2022-01-13 10:16 | LOC: PET 10:15 | PROVIDERS: ATTEND Internal Medicine Hematology & Oncology | DX: C90.00 Multiple myeloma not having achieved remission (principal); C79.51 Secondary malignant neoplasm of bone; D70.1 Agranulocytosis secondary to cancer chemotherapy; T45.1X5A Adverse effect of antineoplastic and immunosuppressive drugs, initial encounter | CPT/HCPCS: 78816; A9552 ==

== ENCOUNTER 2022-01-13 12:56 | Outpatient (CLI) | payer MEDICARE, BC, OTHER | END 2022-01-13 12:57 | disposition home or self-care (01) | LOC: LABBT 12:56 | PROVIDERS: ATTEND Internal Medicine Hematology & Oncology | DX: Z20.822 Contact with and (suspected) exposure to COVID-19 (principal) | CPT/HCPCS: 87811 ==

== ENCOUNTER 2022-01-18 08:30 | Day surgery (SDC) | payer MEDICARE, BC, OTHER ==
[2022-01-17 14:56] VITALS: BMI 26.7
[2022-01-18 08:41] LABS: Hemoglobin 12.4 g/dL (14.0-18.0); Mean Corpuscular Hemoglobin 33.3 pg (27.0-31.0); Platelet Count 388 thou/uL (130-400); Red Blood Cell (RBC) Count 3.71 mill/uL (4.70-6.10); White Blood Cell (WBC) Count 12.1 thou/uL (4.8-10.8)
[2022-01-18 08:42] LABS: #Basophils 0.1 thou/uL (0.0-0.2); #Eosinphils 0.1 thou/uL (0.0-0.7); #Lymphocytes 5.2 thou/uL (1.20-3.40); #Neutrophils 5.8 thou/uL (1.40-6.50); %Basophils 0.8 % (0.0-1.0); %Eosinophils 0.6 % (0.0-10.0); %Lymphocytes 43.1 % (21.0-51.0); %Neutrophils 47.6 % (42.0-75.0)
[2022-01-18 08:58] LABS: PTT 32.3 sec (22.9-36.1); Prothrombin Time 13.1 sec (12.0-14.7)
[2022-01-18 09:02] LABS: MDiff Complete? YES; Macrocytosis SLIGHT = 6-15 cells (100X) (0-5/hpf); Platelet Morphology Comment Appears Adequate; Polychromasia SLIGHT = 2-3 cells (100X) (0-2/hpf)
[2022-01-18 09:17] VITALS: BP 110/60; TEMP 98.3
== END 2022-01-18 10:48 | disposition home or self-care (01) ==
LOC: CT 08:30
PROVIDERS: ATTEND Internal Medicine Hematology & Oncology
PROC: 07DR3ZX Extraction of Iliac Bone Marrow, Percutaneous Approach, Diagnostic (ICD-10-PCS; principal; 2022-01-18)
DX: C90.00 Multiple myeloma not having achieved remission (principal); C79.51 Secondary malignant neoplasm of bone; M19.90 Unspecified osteoarthritis, unspecified site; E78.5 Hyperlipidemia, unspecified; I10 Essential (primary) hypertension; I48.91 Unspecified atrial fibrillation; K21.9 Gastro-esophageal reflux disease without esophagitis; Z86.73 Personal history of transient ischemic attack (TIA), and cerebral infarction without residual deficits; Z79.01 Long term (current) use of anticoagulants; Z79.899 Other long term (current) drug therapy; Z95.5 Presence of coronary angioplasty implant and graft; D70.1 Agranulocytosis secondary to cancer chemotherapy; T45.1X5A Adverse effect of antineoplastic and immunosuppressive drugs, initial encounter
CPT/HCPCS: 20225; 36415; 77012; 83883; 84156; 84166; 85025; 85610; 85730; 86335; 88184; 88237; 88264; 88280

== ENCOUNTER 2022-03-31 13:00 | Outpatient (CLI) | payer MEDICARE, BC, OTHER ==
[2022-03-31 14:13] LABS: Hemoglobin 11.9 g/dL (13.5-17.5); Mean Corpuscular HGB CONC 33.6 g/dL (32.0-36.0); Mean Corpuscular Hemoglobin 31.3 pg (27.0-33.0); Mean Corpuscular Volume 93.2 fl (81.2-95.1); Mean Platelet Volume 11.4 fl (7.4-10.4); Platelet Count 276 10x3/uL (150-450); RBC Distribution Width 18.6 % (11.5-14.5); White Blood Cell (WBC) Count 6.2 10x3/uL (3.5-10.5)
[2022-03-31 14:29] LABS: Prothrombin Time 10.8 sec (9.5-12.1)
[2022-03-31 14:40] LABS: Anion Gap 14 mmol/L (10-20); BUN (Urea Nitrogen) 19 mg/dL (8.4-25.7); Calc. Creatinine Clearance 0 mL/min (70-130); Calcium 8.7 mg/dL (7.8-10.44); Carbon Dioxide 22 mmol/L (23-31); Chloride 109 mmol/L (98-107); Estimated GFR 67; Glucose 98 mg/dL (83-110); Potassium 4.5 mmol/L (3.5-5.1); Sodium 140 mmol/L (136-145)
== END 2022-03-31 13:01 | disposition home or self-care (01) ==
LOC: LABBT 13:00
PROVIDERS: ATTEND Internal Medicine Cardiovascular Disease
DX: Z01.812 Encounter for preprocedural laboratory examination (principal); Z20.822 Contact with and (suspected) exposure to COVID-19; C90.00 Multiple myeloma not having achieved remission; C79.51 Secondary malignant neoplasm of bone; D70.1 Agranulocytosis secondary to cancer chemotherapy; T45.1X5A Adverse effect of antineoplastic and immunosuppressive drugs, initial encounter
CPT/HCPCS: 36415; 80053; 82248; 83615; 84100; 84155; 84165; 84550; 85027; 85610; 87811

== ENCOUNTER 2022-04-05 05:32 | Day surgery (SDC) | payer MEDICARE, BC, OTHER ==
[2022-03-31 14:31] VITALS: BMI 26.2
[2022-04-05] MEDS ORDERED: fentaNYL Citrate/PF 100 MCG/2 ML SYRINGE ONE ×2 (06:39→11:21)
[2022-04-05] MEDS ORDERED: Heparin 25,000 units/D5W 500 ML ONE (06:46)
[2022-04-05] MEDS ORDERED: Protamine Sulfate 50 MG/5 ML VIAL ONE (06:46)
[2022-04-05] MEDS ORDERED: Heparin 10,000 UNITS/ 10 ML VIAL ONE ×2 (06:46→09:12)
[2022-04-05] MEDS ORDERED: Ondansetron PF 4 MG/2 ML Vial ONE (07:30)
[2022-04-05] MEDS ORDERED: PROPOFOL 200 MG/20 ML VIAL ONE (07:30)
[2022-04-05] MEDS ORDERED: ePHEDrine 50 MG/ML VIAL ONE (07:30)
[2022-04-05] MEDS ORDERED: PHENYLEPHRINE-NS 100 MCG/ML 10 ML SYRINGE ONE (07:30)
[2022-04-05] MEDS ORDERED: Rocuronium Bromide 10 MG/ML (10ML VIAL) ONE (07:30)
[2022-04-05] MEDS ORDERED: Dexamethasone 20 MG/5 ML VIAL ONE (07:30)
[2022-04-05] MEDS ORDERED: HYDROcodone/Acetaminophen 5/325 mg Tablet ONE (11:49)
== END 2022-04-05 14:10 | disposition home or self-care (01) ==
LOC: SDC 05:32
PROVIDERS: ATTEND Internal Medicine Cardiovascular Disease
DX: I48.0 Paroxysmal atrial fibrillation (principal); I48.3 Typical atrial flutter; Z20.822 Contact with and (suspected) exposure to COVID-19
CPT/HCPCS: 85347 ×2; 93005; 93312; 93655; 93656; C1730; C1731; C1732; C1759; C1760; C1769 ×3; C1894 ×5; C2630; J1100; J1644; J2405; J2704; J2720; J3490

== ENCOUNTER 2022-06-08 14:45 | Outpatient (CLI) | payer MEDICARE, BC, OTHER | END 2022-06-08 14:46 | disposition home or self-care (01) | LOC: BICRAD 14:45 | PROVIDERS: ATTEND Nurse Practitioner Acute Care | DX: C79.51 Secondary malignant neoplasm of bone (principal); C90.00 Multiple myeloma not having achieved remission; D70.1 Agranulocytosis secondary to cancer chemotherapy; T45.1X5A Adverse effect of antineoplastic and immunosuppressive drugs, initial encounter; J18.1 Lobar pneumonia, unspecified organism; S22.39XD Fracture of one rib, unspecified side, subsequent encounter for fracture with routine healing | CPT/HCPCS: 36415; 71046; 80053; 82248; 83615; 84100; 84155; 84165; 84550 ==

== ENCOUNTER 2022-10-05 21:15 | Inpatient (IN) | payer MEDICARE, BC, OTHER ==
[~2022-10-05 21:15] MED LIST changes: -Dexamethasone 20 MG/5 ML VIAL ONE; -Fentanyl 100 MCG/2 ML VIAL ONE; -Glycopyrrolate 0.2 MG/ML 5 ML SYRINGE ONE; +Iopamidol-370 76% 500 ML MDV (1 ML CHARGE) ONE; -Iothalamate Meglumine 60% 50 ML VIAL FS ONE; -Levofloxacin 500 mg/D5W 100 ml Premix Bag ONE; -Lidocaine 1% PF 5 ML VIAL ONE; -Ondansetron HCl/PF 4 MG/2 ML Vial ONE; -PHENYLEPHRINE-NS 100 MCG/ML 10 ML SYRINGE ONE; -PROPOFOL 200 MG/20 ML VIAL ONE; -ePHEDrine/0.9% NaCl/PF SYRINGE 50 mg/10 ml ONE
[2022-10-05] MEDS ORDERED: Ipratropium/Albuterol 3 ML NEB ONE (22:30)
[2022-10-05] MEDS ORDERED: methylPREDNISolone Sod Succ/PF 125 MG/2 ML VIAL ONE (22:30)
[2022-10-05] MEDS ORDERED: Azithromycin 500 MG VIAL ONE (22:30)
[2022-10-05 22:36] LABS: #Lymphocytes 1.5 thou/uL (1.20-3.40); #Monocytes 1.1 thou/uL (0.11-0.59); #Neutrophils 11.5 thou/uL (1.40-6.50); %Basophils 0.1 % (0.0-1.0); %Eosinophils 0.2 % (0.0-10.0); %Lymphocytes 10.3 % (21.0-51.0); %Neutrophils 81.4 % (42.0-75.0); Hemoglobin 12.8 g/dL (14.0-18.0); Mean Corpuscular HGB CONC 30.9 g/dL (32.0-36.0); Mean Corpuscular Hemoglobin 32.6 pg (27.0-31.0); Mean Platelet Volume 9.3 fL (7.4-10.4); Platelet Count 168 10x3/uL (130-400); RBC Distribution Width 17.2 % (11.5-14.5); Red Blood Cell (RBC) Count 3.92 mill/uL (4.70-6.10); White Blood Cell (WBC) Count 14.1 10x3/uL (4.8-10.8)
[2022-10-05 22:59] LABS: ALT (SGPT) 147 U/L (8-55); AST (SGOT) 142 U/L (5-34); Albumin 4.2 g/dL (3.4-4.8); Alkaline Phosphatase 83 U/L (40-110); Anion Gap 16 mmol/L (10-20); BUN (Urea Nitrogen) 25 mg/dL (8.4-25.7); Calc. Creatinine Clearance 0 mL/min (70-130); Calcium 9.2 mg/dL (7.8-10.44); Carbon Dioxide 20 mmol/L (23-31); Chloride 101 mmol/L (98-107); Estimated GFR 57; Glucose 135 mg/dL (83-110); Magnesium 2.1 mg/dL (1.6-2.6); Protein, Total 7.2 g/dL (5.8-8.1); Sodium 133 mmol/L (136-145)
[2022-10-05] MEDS ORDERED: cefTRIAXone (ROCEPHIN) 1 GM VIAL ONE (23:42)
[2022-10-06] MEDS ORDERED: Ondansetron ODT 4 MG TAB SL PRN (00:45)
[2022-10-06] MEDS ORDERED: Ondansetron PF 4 MG/2 ML Vial IVP PRN (00:45)
[2022-10-06] MEDS ORDERED: Vancomycin 1 GM/200 ML (FROZEN) BAG ONE (01:08)
[2022-10-06] MEDS ORDERED: Acetaminophen 325 MG TAB ONE (01:19)
[2022-10-06 01:55] LABS: Bacteria/HPF 1+ HPF (None Seen); Bilirubin Negative (Negative); Blood, Urine 1+ (Negative); Clarity Clear (Clear); Glucose, Urine (Dipstick) Normal (Negative); Ketone, Urine Negative (Negative); Leukocyte Negative Leu/uL (Negative); Mucous/LPF Rare LPF (<2+); Nitrite Negative (Negative); Protein, Urine (Dipstick) 100 mg/dL (Neg-Trace); RBC/HPF 0-3 HPF (0-3); Specific Gravity, Urine 1.036 (1.002-1.036); Squamous Epithelial 0-3 HPF (0-3); Urobilinogen Normal mg/dL (Less than 2); WBC/HPF 0-3 HPF (0-3)
[2022-10-06 02:05] LABS: SARS-CoV-2 NAA Rapid Test Not Detected (NotDetected)
[2022-10-06 02:10] LABS: #Lymphocytes 1.2 thou/uL (1.20-3.40); #Monocytes 0.6 thou/uL (0.11-0.59); #Neutrophils 11.7 thou/uL (1.40-6.50); %Basophils 0.2 % (0.0-1.0); %Eosinophils 0.1 % (0.0-10.0); %Lymphocytes 8.7 % (21.0-51.0); %Monocytes 4.3 % (0.0-10.0); %Neutrophils 86.8 % (42.0-75.0); Hemoglobin 12.2 g/dL (14.0-18.0); Mean Corpuscular HGB CONC 32.3 g/dL (32.0-36.0); Mean Corpuscular Hemoglobin 34.1 pg (27.0-31.0); Mean Platelet Volume 9.6 fL (7.4-10.4); Platelet Count 166 10x3/uL (130-400); RBC Distribution Width 17.1 % (11.5-14.5); Red Blood Cell (RBC) Count 3.58 mill/uL (4.70-6.10); White Blood Cell (WBC) Count 13.5 10x3/uL (4.8-10.8)
[2022-10-06 02:22] LABS: Lactic Acid 0.9 mmol/L (0.5-2.2)
[2022-10-06 02:31] LABS: ALT (SGPT) 125 U/L (8-55); AST (SGOT) 115 U/L (5-34); Albumin 3.8 g/dL (3.4-4.8); Alkaline Phosphatase 72 U/L (40-110); Anion Gap 16 mmol/L (10-20); BUN (Urea Nitrogen) 23 mg/dL (8.4-25.7); Bilirubin, Total 0.6 mg/dL (0.2-1.2); Calc. Creatinine Clearance 0 mL/min (70-130); Calcium 8.7 mg/dL (7.8-10.44); Carbon Dioxide 16 mmol/L (23-31); Chloride 104 mmol/L (98-107); Estimated GFR 72; Globulin 2.7 g/dL (2.4-3.5); Glucose 158 mg/dL (83-110); Potassium 4.1 mmol/L (3.5-5.1); Protein, Total 6.5 g/dL (5.8-8.1); Sodium 132 mmol/L (136-145)
[2022-10-06] MEDS: Sodium Chloride 0.9% 1,000 ML IV SCH ×3 (03:38→18:11)
[2022-10-06] MEDS ORDERED: traMADol HCl 50 MG TAB PO PRN (04:57)
[2022-10-06] MEDS: Apixaban 5 MG TAB PO SCH ×2 (09:01→20:32)
[2022-10-06] MEDS: Cefepime 1 GM in Sodium Chloride 0.9% 100 ML IVPB SCH ×2 (09:01→20:32)
[2022-10-06] MEDS: VANCOMYCIN 1.25 GM/250 ML BAG 1.25 GM in Premix Bag 1 BAG IVPB SCH (10:19)
[2022-10-06] MEDS: traMADol HCl 50 MG TAB PO PRN (11:13)
[2022-10-06] MEDS: HYDROcodone/Acetaminophen 10/325 mg Tablet PO PRN (14:05)
[2022-10-06] MEDS: Acetaminophen 500 MG TAB PO PRN (18:10)
[2022-10-06] MEDS: Rosuvastatin 20 MG TAB PO SCH (20:32)
[2022-10-06] MEDS: valACYclovir 500 MG TAB PO SCH (20:39)
[2022-10-07] MEDS: traMADol HCl 50 MG TAB PO PRN ×3 (00:19→20:11)
[2022-10-07] MEDS: Acetaminophen 500 MG TAB PO PRN ×3 (00:20→16:43)
[2022-10-07] MEDS: VANCOMYCIN 1.25 GM/250 ML BAG 1.25 GM in Premix Bag 1 BAG IVPB SCH ×3 (00:21→22:05)
[2022-10-07] MEDS: HYDROcodone/Acetaminophen 10/325 mg Tablet PO PRN ×2 (05:04→11:34)
[2022-10-07 06:02] VITALS: BMI 28.0
[2022-10-07 06:02] LABS: Anisocytosis SLIGHT = 6-15 cells (100X) (0-5/hpf); Band 1 % (5-11); Burr Cells SLIGHT = 2-5 cells (100X) (0-1/hpf); Hemoglobin 11.4 g/dL (14.0-18.0); Lymphocytes 13 % (21-51); MDiff Complete? YES; Macrocytosis MODERATE=16-30 cells (100X) (0-5/hpf); Mean Corpuscular HGB CONC 33.1 g/dL (32.0-36.0); Mean Corpuscular Hemoglobin 34.7 pg (27.0-31.0); Mean Platelet Volume 9.9 fL (7.4-10.4); Monocytes 6 % (0-10); Neutrophil 80 % (42-75); Ovalocytes SLIGHT = 2-5 cells (100X) (0-1/hpf); Platelet Count 134 10x3/uL (130-400); Platelet Morphology Comment Appears Adequate; RBC Distribution Width 17.1 % (11.5-14.5); Red Blood Cell (RBC) Count 3.28 mill/uL (4.70-6.10); Target Cells SLIGHT = 2-5 cells (100X) (0-1/hpf); White Blood Cell (WBC) Count 17.7 10x3/uL (4.8-10.8)
[2022-10-07 06:03] LABS: ALT (SGPT) 83 U/L (8-55); AST (SGOT) 72 U/L (5-34); Albumin 3.5 g/dL (3.4-4.8); Alkaline Phosphatase 64 U/L (40-110); Anion Gap 14 mmol/L (10-20); BUN (Urea Nitrogen) 19 mg/dL (8.4-25.7); Bilirubin, Total 0.6 mg/dL (0.2-1.2); Calc. Creatinine Clearance 110 mL/min (70-130); Calcium 8.3 mg/dL (7.8-10.44); Carbon Dioxide 18 mmol/L (23-31); Chloride 107 mmol/L (98-107); Estimated GFR 92; Globulin 2.4 g/dL (2.4-3.5); Glucose 117 mg/dL (83-110); Potassium 3.9 mmol/L (3.5-5.1); Protein, Total 5.9 g/dL (5.8-8.1); Sodium 135 mmol/L (136-145)
[2022-10-07] MEDS: Cefepime 1 GM in Sodium Chloride 0.9% 100 ML IVPB SCH (06:39)
[2022-10-07] MEDS: Sodium Chloride 0.9% 1,000 ML IV SCH ×2 (06:41→16:46)
[2022-10-07] MEDS: Pregabalin 50 MG CAP PO SCH (10:30)
[2022-10-07] MEDS: valACYclovir 500 MG TAB PO SCH ×2 (10:30→20:12)
[2022-10-07] MEDS: Tamsulosin HCl 0.4 MG CAP PO SCH ×2 (10:30→16:35)
[2022-10-07] MEDS: Apixaban 5 MG TAB PO SCH ×2 (10:31→20:12)
[2022-10-07] MEDS: Multivit, Therapeutic 1 TAB PO SCH (10:31)
[2022-10-07 10:51] LABS: Vancomycin, Trough 15.1 ug/mL
[2022-10-07] MEDS ORDERED: Magnevist 469MG/ML 20 ML VIAL ONE ×2 (11:38)
[2022-10-07] MEDS: Morphine 4 MG/ML VIAL SLOW IVP PRN (17:38)
[2022-10-07] MEDS ORDERED: SUMAtriptan Succinate 6 MG/0.5 ML VIAL SC SCH (19:45)
[2022-10-07] MEDS: Rosuvastatin 20 MG TAB PO SCH (20:12)
[2022-10-07] MEDS ORDERED: Cefepime 2 GM in Sodium Chloride 0.9% 100 ML IVPB SCH (21:00)
[2022-10-07] MEDS ORDERED: diphenhydrAMINE 50 MG/ML VIAL IVP SCH (21:30)
[2022-10-07] MEDS ORDERED: Metoclopramide HCl 10 MG/2 ML VIAL IVP SCH (21:30)
[2022-10-08] MEDS: Acetaminophen 500 MG TAB PO PRN ×3 (00:44→16:13)
[2022-10-08 01:00] LABS: #Basophils 0.1 thou/uL (0.0-0.2); #Lymphocytes 4.1 thou/uL (1.20-3.40); #Monocytes 1.4 thou/uL (0.11-0.59); #Neutrophils 9.8 thou/uL (1.40-6.50); %Basophils 0.4 % (0.0-1.0); %Eosinophils 0.1 % (0.0-10.0); %Lymphocytes 26.8 % (21.0-51.0); %Monocytes 8.9 % (0.0-10.0); %Neutrophils 63.9 % (42.0-75.0); Hemoglobin 12.8 g/dL (14.0-18.0); Mean Corpuscular HGB CONC 32.3 g/dL (32.0-36.0); Mean Corpuscular Hemoglobin 34.1 pg (27.0-31.0); Mean Platelet Volume 9.7 fL (7.4-10.4); Platelet Count 149 10x3/uL (130-400); RBC Distribution Width 17.2 % (11.5-14.5); Red Blood Cell (RBC) Count 3.76 mill/uL (4.70-6.10); White Blood Cell (WBC) Count 15.3 10x3/uL (4.8-10.8)
[2022-10-08 01:22] LABS: Magnesium 1.9 mg/dL (1.6-2.6)
[2022-10-08 01:28] LABS: Troponin I 0.031 ng/mL (< 0.028)
[2022-10-08] MEDS ORDERED: Sodium Chloride 0.9% 500 ML IV SCH (01:45)
[2022-10-08] MEDS: Sodium Chloride 0.9% 1,000 ML IV SCH ×2 (02:51→21:32)
[2022-10-08 03:23] LABS: Anion Gap 20 mmol/L (10-20); BUN (Urea Nitrogen) 13 mg/dL (8.4-25.7); Calc. Creatinine Clearance 102 mL/min (70-130); Calcium 9.1 mg/dL (7.8-10.44); Carbon Dioxide 14 mmol/L (23-31); Chloride 104 mmol/L (98-107); Estimated GFR 90; Glucose 104 mg/dL (83-110); Potassium 3.6 mmol/L (3.5-5.1); Sodium 134 mmol/L (136-145)
[2022-10-08] MEDS ORDERED: Magnesium 2 GM/50 ML(in water) 2 GM in Premix Bag 1 BAG IVPB SCH (04:15)
[2022-10-08 05:38] LABS: Lactic Acid 1.5 mmol/L (0.5-2.2)
[2022-10-08 05:53] LABS: Troponin I 0.038 ng/mL (< 0.028)
[2022-10-08] MEDS: Morphine 4 MG/ML VIAL SLOW IVP PRN ×2 (08:29→14:00)
[2022-10-08] MEDS: Tamsulosin HCl 0.4 MG CAP PO SCH (08:43)
[2022-10-08] MEDS: Apixaban 5 MG TAB PO SCH ×2 (08:43→21:33)
[2022-10-08] MEDS: Multivit, Therapeutic 1 TAB PO SCH (08:43)
[2022-10-08] MEDS: Pregabalin 50 MG CAP PO SCH (08:44)
[2022-10-08] MEDS: valACYclovir 500 MG TAB PO SCH ×2 (08:45→21:33)
[2022-10-08] MEDS: VANCOMYCIN 1.25 GM/250 ML BAG 1.25 GM in Premix Bag 1 BAG IVPB SCH (12:03)
[2022-10-08] MEDS: traMADol HCl 50 MG TAB PO PRN (12:19)
[2022-10-08] MEDS ORDERED: Naproxen 500 MG TAB PO SCH (15:15)
[2022-10-08] MEDS ORDERED: AMPicillin 2 GM in Sodium Chloride 0.9% 100 ML IVPB SCH ×2 (18:15→23:59)
[2022-10-08] MEDS: cefTRIAXone\\ROCEPHIN 2 GM in Sodium Chloride 0.9% 100 ML IVPB SCH (21:32)
[2022-10-08] MEDS: Rosuvastatin 20 MG TAB PO SCH (21:33)
[2022-10-08] MEDS: AMPicillin 2 GM in Sodium Chloride 0.9% 100 ML IVPB SCH (23:59)
[2022-10-09] MEDS: AMPicillin 2 GM in Sodium Chloride 0.9% 100 ML IVPB SCH ×2 (03:32→06:27)
[2022-10-09] MEDS: Morphine 4 MG/ML VIAL SLOW IVP PRN ×4 (03:45→23:18)
[2022-10-09 06:15] LABS: ALT (SGPT) 80 U/L (8-55); AST (SGOT) 80 U/L (5-34); Albumin 3.8 g/dL (3.4-4.8); Alkaline Phosphatase 69 U/L (40-110); Anion Gap 17 mmol/L (10-20); BUN (Urea Nitrogen) 11 mg/dL (8.4-25.7); Bilirubin, Total 0.6 mg/dL (0.2-1.2); Calc. Creatinine Clearance 118 mL/min (70-130); Calcium 8.7 mg/dL (7.8-10.44); Carbon Dioxide 16 mmol/L (23-31); Chloride 107 mmol/L (98-107); Estimated GFR 94; Globulin 2.7 g/dL (2.4-3.5); Glucose 104 mg/dL (83-110); Potassium 3.4 mmol/L (3.5-5.1); Protein, Total 6.5 g/dL (5.8-8.1); Sodium 137 mmol/L (136-145)
[2022-10-09 06:35] LABS: Anisocytosis MODERATE=16-30 cells (100X) (0-5/hpf); Hemoglobin 13.1 g/dL (14.0-18.0); Lymphocytes 13 % (21-51); MDiff Complete? YES; Macrocytosis MODERATE=16-30 cells (100X) (0-5/hpf); Mean Corpuscular HGB CONC 32.4 g/dL (32.0-36.0); Mean Platelet Volume 10.3 fL (7.4-10.4); Monocytes 3 % (0-10); Neutrophil 84 % (42-75); Ovalocytes SLIGHT = 2-5 cells (100X) (0-1/hpf); Platelet Count 136 10x3/uL (130-400); Platelet Morphology Comment Appears Adequate; RBC Distribution Width 17.1 % (11.5-14.5); Red Blood Cell (RBC) Count 3.86 mill/uL (4.70-6.10); Target Cells SLIGHT = 2-5 cells (100X) (0-1/hpf)
[2022-10-09] MEDS: cefTRIAXone\\ROCEPHIN 2 GM in Sodium Chloride 0.9% 100 ML IVPB SCH ×2 (08:26→20:50)
[2022-10-09] MEDS: HYDROcodone/Acetaminophen 10/325 mg Tablet PO PRN ×2 (08:27→21:13)
[2022-10-09] MEDS: Apixaban 5 MG TAB PO SCH ×2 (08:27→20:50)
[2022-10-09] MEDS: valACYclovir 500 MG TAB PO SCH ×2 (08:27→20:50)
[2022-10-09] MEDS: Pregabalin 50 MG CAP PO SCH ×2 (08:27→09:28)
[2022-10-09] MEDS: Tamsulosin HCl 0.4 MG CAP PO SCH (08:27)
[2022-10-09] MEDS: Multivit, Therapeutic 1 TAB PO SCH (08:27)
[2022-10-09] MEDS: Sodium Chloride 0.9% 1,000 ML IV SCH ×2 (09:25→22:21)
[2022-10-09] MEDS: Ampicillin 2 GM in Sodium Chloride 0.9% 100 ML IVPB SCH ×4 (09:30→22:18)
[2022-10-09] MEDS ORDERED: Potassium Chloride 20 MEQ TAB PO SCH (10:00)
[2022-10-09 10:22] LABS: Vancomycin, Trough 9.3 ug/mL
[2022-10-09] MEDS ORDERED: diphenhydrAMINE 12.5 MG in Sodium Chloride 0.9% 50 ML IVPB SCH (12:15)
[2022-10-09] MEDS: Rosuvastatin 20 MG TAB PO SCH (20:50)
[2022-10-10] MEDS: Ampicillin 2 GM in Sodium Chloride 0.9% 100 ML IVPB SCH ×6 (02:23→23:10)
[2022-10-10] MEDS: Morphine 4 MG/ML VIAL SLOW IVP PRN ×2 (03:50→07:50)
[2022-10-10 05:47] LABS: ALT (SGPT) 101 U/L (8-55); AST (SGOT) 105 U/L (5-34); Albumin 3.3 g/dL (3.4-4.8); Alkaline Phosphatase 63 U/L (40-110); Anion Gap 12 mmol/L (10-20); BUN (Urea Nitrogen) 8 mg/dL (8.4-25.7); Bilirubin, Total 0.5 mg/dL (0.2-1.2); Calc. Creatinine Clearance 121 mL/min (70-130); Calcium 7.9 mg/dL (7.8-10.44); Carbon Dioxide 21 mmol/L (23-31); Chloride 108 mmol/L (98-107); Estimated GFR 94; Globulin 2.4 g/dL (2.4-3.5); Glucose 102 mg/dL (83-110); Potassium 3.4 mmol/L (3.5-5.1); Protein, Total 5.7 g/dL (5.8-8.1); Sodium 138 mmol/L (136-145)
[2022-10-10 05:48] LABS: Hemoglobin 11.7 g/dL (14.0-18.0); Hypochromia SLIGHT = 6-15 cells (100X) (0-5/hpf); Lymphocytes 13 % (21-51); MDiff Complete? YES; Macrocytosis SLIGHT = 6-15 cells (100X) (0-5/hpf); Mean Corpuscular HGB CONC 33.2 g/dL (32.0-36.0); Mean Corpuscular Hemoglobin 34.2 pg (27.0-31.0); Mean Platelet Volume 9.8 fL (7.4-10.4); Monocytes 18 % (0-10); Neutrophil 67 % (42-75); Platelet Count 172 10x3/uL (130-400); Platelet Morphology Comment Appears Adequate; RBC Distribution Width 16.8 % (11.5-14.5); Reactive Lymphocytes 2 % (0-10); Red Blood Cell (RBC) Count 3.43 mill/uL (4.70-6.10); White Blood Cell (WBC) Count 10.1 10x3/uL (4.8-10.8)
[2022-10-10] MEDS: cefTRIAXone\\ROCEPHIN 2 GM in Sodium Chloride 0.9% 100 ML IVPB SCH ×2 (07:49→20:30)
[2022-10-10] MEDS: Tamsulosin HCl 0.4 MG CAP PO SCH (07:51)
[2022-10-10] MEDS: Apixaban 5 MG TAB PO SCH ×2 (07:51→20:31)
[2022-10-10] MEDS: Pregabalin 50 MG CAP PO SCH (07:51)
[2022-10-10] MEDS: Multivit, Therapeutic 1 TAB PO SCH (07:51)
[2022-10-10] MEDS: valACYclovir 500 MG TAB PO SCH ×2 (07:52→20:31)
[2022-10-10] MEDS ORDERED: diphenhydrAMINE 25 MG CAP PO SCH (10:30)
[2022-10-10] MEDS ORDERED: Lidocaine 1% PF 5 ML VIAL ONE ×2 (12:16→12:28)
[2022-10-10] MEDS ORDERED: PHENYLEPHRINE-NS 100 MCG/ML 10 ML SYRINGE ONE (12:16)
[2022-10-10] MEDS ORDERED: PROPOFOL 40 ML ONE (12:16)
[2022-10-10] MEDS ORDERED: PROPOFOL 200 MG/20 ML VIAL ONE (12:28)
[2022-10-10] MEDS: Sodium Chloride 0.9% 1,000 ML IV SCH (13:31)
[2022-10-10] MEDS: HYDROcodone/Acetaminophen 10/325 mg Tablet PO PRN (18:31)
[2022-10-10] MEDS ORDERED: Tamsulosin HCl 0.4 MG CAP PO SCH (21:30)
[2022-10-10] MEDS: traMADol HCl 50 MG TAB PO PRN (23:09)
[2022-10-11] MEDS ORDERED: diphenhydrAMINE 50 MG/ML VIAL IVP SCH ×2 (00:30→15:30)
[2022-10-11] MEDS: Ampicillin 2 GM in Sodium Chloride 0.9% 100 ML IVPB SCH ×6 (02:48→22:26)
[2022-10-11] MEDS: Sodium Chloride 0.9% 1,000 ML IV SCH (02:49)
[2022-10-11] MEDS ORDERED: Ketorolac Tromethamine 30 MG/ML VIAL IVP SCH (04:00)
[2022-10-11] MEDS: HYDROcodone/Acetaminophen 10/325 mg Tablet PO PRN ×2 (05:12→11:28)
[2022-10-11 05:50] LABS: ALT (SGPT) 94 U/L (8-55); AST (SGOT) 83 U/L (5-34); Albumin 3.3 g/dL (3.4-4.8); Alkaline Phosphatase 66 U/L (40-110); Anion Gap 14 mmol/L (10-20); BUN (Urea Nitrogen) 7 mg/dL (8.4-25.7); Bilirubin, Total 0.5 mg/dL (0.2-1.2); Calc. Creatinine Clearance 130 mL/min (70-130); Carbon Dioxide 19 mmol/L (23-31); Chloride 109 mmol/L (98-107); Estimated GFR 97; Globulin 2.5 g/dL (2.4-3.5); Glucose 96 mg/dL (83-110); Potassium 3.1 mmol/L (3.5-5.1); Protein, Total 5.8 g/dL (5.8-8.1); Sodium 139 mmol/L (136-145)
[2022-10-11 05:53] LABS: Anisocytosis SLIGHT = 6-15 cells (100X) (0-5/hpf); Burr Cells SLIGHT = 2-5 cells (100X) (0-1/hpf); Hemoglobin 12.5 g/dL (14.0-18.0); Lymphocytes 18 % (21-51); MDiff Complete? YES; Macrocytosis MODERATE=16-30 cells (100X) (0-5/hpf); Mean Platelet Volume 9.6 fL (7.4-10.4); Monocytes 14 % (0-10); Neutrophil 68 % (42-75); Ovalocytes SLIGHT = 2-5 cells (100X) (0-1/hpf); Platelet Count 201 10x3/uL (130-400); Platelet Morphology Comment Appears Adequate; RBC Distribution Width 17.1 % (11.5-14.5); Red Blood Cell (RBC) Count 3.56 mill/uL (4.70-6.10); White Blood Cell (WBC) Count 9.4 10x3/uL (4.8-10.8)
[2022-10-11] MEDS: cefTRIAXone\\ROCEPHIN 2 GM in Sodium Chloride 0.9% 100 ML IVPB SCH ×2 (08:11→20:51)
[2022-10-11] MEDS: Morphine 2 MG/ML VIAL SLOW IVP PRN (08:14)
[2022-10-11] MEDS: Apixaban 5 MG TAB PO SCH ×2 (08:21→20:50)
[2022-10-11] MEDS: Pregabalin 50 MG CAP PO SCH (08:21)
[2022-10-11] MEDS: Allopurinol 100 MG TAB PO SCH (08:22)
[2022-10-11] MEDS: Potassium Chloride 20 MEQ TAB PO SCH ×2 (08:23→16:20)
[2022-10-11] MEDS: valACYclovir 500 MG TAB PO SCH ×2 (08:23→20:50)
[2022-10-11] MEDS: traMADol HCl 50 MG TAB PO PRN (09:32)
[2022-10-11] MEDS: Morphine 4 MG/ML VIAL SLOW IVP PRN ×2 (13:28→20:54)
[2022-10-11] MEDS: Multivit, Therapeutic 1 TAB PO SCH (13:30)
[2022-10-11] MEDS ORDERED: Gentamicin 240 MG in Sodium Chloride 0.9% 100 ML IVPB SCH (17:00)
[2022-10-11] MEDS: Tamsulosin HCl 0.4 MG CAP PO SCH (20:51)
[2022-10-12] MEDS: Ampicillin 2 GM in Sodium Chloride 0.9% 100 ML IVPB SCH ×6 (02:34→22:43)
[2022-10-12] MEDS: HYDROcodone/Acetaminophen 10/325 mg Tablet PO PRN ×3 (02:40→16:03)
[2022-10-12 05:29] LABS: #Eosinphils 0.1 thou/uL (0.0-0.7); #Lymphocytes 3.6 thou/uL (1.20-3.40); #Monocytes 0.9 thou/uL (0.11-0.59); #Neutrophils 4.2 thou/uL (1.40-6.50); %Basophils 0.3 % (0.0-1.0); %Eosinophils 0.9 % (0.0-10.0); %Lymphocytes 40.9 % (21.0-51.0); %Monocytes 10.3 % (0.0-10.0); %Neutrophils 47.6 % (42.0-75.0); Hemoglobin 11.9 g/dL (14.0-18.0); Mean Corpuscular Hemoglobin 34.2 pg (27.0-31.0); Mean Platelet Volume 9.4 fL (7.4-10.4); Platelet Count 242 10x3/uL (130-400); RBC Distribution Width 17.4 % (11.5-14.5); Red Blood Cell (RBC) Count 3.47 mill/uL (4.70-6.10); White Blood Cell (WBC) Count 8.9 10x3/uL (4.8-10.8)
[2022-10-12 05:41] LABS: ALT (SGPT) 84 U/L (8-55); AST (SGOT) 68 U/L (5-34); Albumin 3.2 g/dL (3.4-4.8); Alkaline Phosphatase 70 U/L (40-110); Anion Gap 13 mmol/L (10-20); BUN (Urea Nitrogen) 9 mg/dL (8.4-25.7); Bilirubin, Total 0.4 mg/dL (0.2-1.2); Calc. Creatinine Clearance 126 mL/min (70-130); Calcium 8.3 mg/dL (7.8-10.44); Carbon Dioxide 17 mmol/L (23-31); Chloride 109 mmol/L (98-107); Estimated GFR 96; Globulin 2.4 g/dL (2.4-3.5); Glucose 109 mg/dL (83-110); Potassium 4.1 mmol/L (3.5-5.1); Protein, Total 5.6 g/dL (5.8-8.1); Sodium 135 mmol/L (136-145)
[2022-10-12] MEDS: cefTRIAXone\\ROCEPHIN 2 GM in Sodium Chloride 0.9% 100 ML IVPB SCH ×2 (09:07→20:15)
[2022-10-12] MEDS: Polyethylene Glycol 3350 17 GM Packet PO PRN (09:08)
[2022-10-12] MEDS: valACYclovir 500 MG TAB PO SCH ×2 (09:08→20:14)
[2022-10-12] MEDS: Apixaban 5 MG TAB PO SCH ×2 (09:10→20:14)
[2022-10-12] MEDS: Potassium Chloride 20 MEQ TAB PO SCH (09:10)
[2022-10-12] MEDS: Allopurinol 100 MG TAB PO SCH (09:11)
[2022-10-12] MEDS: Pregabalin 50 MG CAP PO SCH (09:13)
[2022-10-12] MEDS: Multivit, Therapeutic 1 TAB PO SCH (09:13)
[2022-10-12] MEDS: traMADol HCl 50 MG TAB PO PRN (10:46)
[2022-10-12] MEDS: Morphine 2 MG/ML VIAL SLOW IVP PRN (12:03)
[2022-10-12] MEDS: Melatonin 3 MG TAB PO PRN (20:14)
[2022-10-12] MEDS: Tamsulosin HCl 0.4 MG CAP PO SCH (20:14)
[2022-10-12] MEDS ORDERED: diphenhydrAMINE 50 MG/ML VIAL IVP SCH (21:00)
[2022-10-13] MEDS: Ampicillin 2 GM in Sodium Chloride 0.9% 100 ML IVPB SCH ×6 (02:03→21:55)
[2022-10-13 05:23] LABS: ALT (SGPT) 72 U/L (8-55); AST (SGOT) 49 U/L (5-34); Albumin 3.3 g/dL (3.4-4.8); Alkaline Phosphatase 71 U/L (40-110); Anion Gap 14 mmol/L (10-20); BUN (Urea Nitrogen) 8 mg/dL (8.4-25.7); Bilirubin, Total 0.3 mg/dL (0.2-1.2); Calc. Creatinine Clearance 119 mL/min (70-130); Calcium 8.5 mg/dL (7.8-10.44); Carbon Dioxide 19 mmol/L (23-31); Chloride 107 mmol/L (98-107); Estimated GFR 94; Globulin 2.7 g/dL (2.4-3.5); Glucose 109 mg/dL (83-110); Potassium 4.6 mmol/L (3.5-5.1); Sodium 135 mmol/L (136-145)
[2022-10-13 06:02] LABS: Anisocytosis SLIGHT = 6-15 cells (100X) (0-5/hpf); Eosinophils 2 % (0-10); Lymphocytes 24 % (21-51); MDiff Complete? YES; Macrocytosis MODERATE=16-30 cells (100X) (0-5/hpf); Mean Corpuscular HGB CONC 32.3 g/dL (32.0-36.0); Mean Corpuscular Hemoglobin 33.7 pg (27.0-31.0); Mean Platelet Volume 9.4 fL (7.4-10.4); Metamyelocyte 1 % (0-0); Monocytes 6 % (0-10); Neutrophil 67 % (42-75); Ovalocytes SLIGHT = 2-5 cells (100X) (0-1/hpf); Platelet Count 272 10x3/uL (130-400); Platelet Morphology Comment Appears Adequate; RBC Distribution Width 17.6 % (11.5-14.5); Red Blood Cell (RBC) Count 3.55 mill/uL (4.70-6.10); White Blood Cell (WBC) Count 9.9 10x3/uL (4.8-10.8)
[2022-10-13] MEDS: cefTRIAXone\\ROCEPHIN 2 GM in Sodium Chloride 0.9% 100 ML IVPB SCH ×2 (08:29→21:09)
[2022-10-13] MEDS: traMADol HCl 50 MG TAB PO PRN ×2 (08:30→17:35)
[2022-10-13] MEDS: Allopurinol 100 MG TAB PO SCH (08:31)
[2022-10-13] MEDS: Apixaban 5 MG TAB PO SCH ×2 (08:31→21:09)
[2022-10-13] MEDS: Multivit, Therapeutic 1 TAB PO SCH (08:31)
[2022-10-13] MEDS: valACYclovir 500 MG TAB PO SCH ×2 (08:31→21:09)
[2022-10-13] MEDS: Pregabalin 50 MG CAP PO SCH (08:31)
[2022-10-13] MEDS: Polyethylene Glycol 3350 17 GM Packet PO PRN (08:41)
[2022-10-13] MEDS: HYDROcodone/Acetaminophen 10/325 mg Tablet PO PRN ×2 (10:18→18:26)
[2022-10-13] MEDS: Acetaminophen 500 MG TAB PO PRN (12:44)
[2022-10-13] MEDS: Morphine 2 MG/ML VIAL SLOW IVP PRN (15:36)
[2022-10-13] MEDS ORDERED: diphenhydrAMINE 50 MG/ML VIAL IVP SCH (21:00)
[2022-10-13] MEDS: Melatonin 3 MG TAB PO PRN (21:09)
[2022-10-13] MEDS: Tamsulosin HCl 0.4 MG CAP PO SCH (21:10)
[2022-10-13] MEDS ORDERED: Pregabalin 50 MG CAP PO SCH (22:15)
[2022-10-14] MEDS: Ampicillin 2 GM in Sodium Chloride 0.9% 100 ML IVPB SCH ×6 (03:01→21:49)
[2022-10-14 06:30] LABS: #Eosinphils 0.1 thou/uL (0.0-0.7); #Lymphocytes 3.3 thou/uL (1.20-3.40); #Monocytes 0.8 thou/uL (0.11-0.59); #Neutrophils 6.3 thou/uL (1.40-6.50); %Basophils 0.3 % (0.0-1.0); %Eosinophils 0.6 % (0.0-10.0); %Lymphocytes 31.7 % (21.0-51.0); %Monocytes 7.2 % (0.0-10.0); %Neutrophils 60.3 % (42.0-75.0); Hemoglobin 11.5 g/dL (14.0-18.0); Mean Corpuscular HGB CONC 32.3 g/dL (32.0-36.0); Mean Corpuscular Hemoglobin 33.8 pg (27.0-31.0); Mean Platelet Volume 9.2 fL (7.4-10.4); Platelet Count 283 10x3/uL (130-400); RBC Distribution Width 17.7 % (11.5-14.5); Red Blood Cell (RBC) Count 3.42 mill/uL (4.70-6.10); White Blood Cell (WBC) Count 10.5 10x3/uL (4.8-10.8)
[2022-10-14 06:41] LABS: ALT (SGPT) 53 U/L (8-55); AST (SGOT) 35 U/L (5-34); Albumin 3.2 g/dL (3.4-4.8); Alkaline Phosphatase 67 U/L (40-110); Anion Gap 13 mmol/L (10-20); BUN (Urea Nitrogen) 8 mg/dL (8.4-25.7); Bilirubin, Total 0.3 mg/dL (0.2-1.2); Calc. Creatinine Clearance 115 mL/min (70-130); Calcium 8.7 mg/dL (7.8-10.44); Carbon Dioxide 22 mmol/L (23-31); Chloride 107 mmol/L (98-107); Estimated GFR 93; Globulin 2.6 g/dL (2.4-3.5); Glucose 96 mg/dL (83-110); Potassium 4.1 mmol/L (3.5-5.1); Protein, Total 5.8 g/dL (5.8-8.1); Sodium 138 mmol/L (136-145)
[2022-10-14] MEDS: cefTRIAXone\\ROCEPHIN 2 GM in Sodium Chloride 0.9% 100 ML IVPB SCH ×2 (08:32→21:50)
[2022-10-14] MEDS: Pregabalin 50 MG CAP PO SCH ×2 (08:34→21:47)
[2022-10-14] MEDS: Allopurinol 100 MG TAB PO SCH (08:34)
[2022-10-14] MEDS: Multivit, Therapeutic 1 TAB PO SCH (08:34)
[2022-10-14] MEDS: Apixaban 5 MG TAB PO SCH ×2 (08:34→21:46)
[2022-10-14] MEDS: valACYclovir 500 MG TAB PO SCH ×2 (08:35→21:46)
[2022-10-14] MEDS: Acetaminophen 500 MG TAB PO PRN (14:44)
[2022-10-14] MEDS: HYDROcodone/Acetaminophen 10/325 mg Tablet PO PRN ×2 (15:52→21:47)
[2022-10-14] MEDS: traMADol HCl 50 MG TAB PO PRN (17:14)
[2022-10-14] MEDS: Polyethylene Glycol 3350 17 GM Packet PO PRN (17:54)
[2022-10-14] MEDS: Tamsulosin HCl 0.4 MG CAP PO SCH (21:46)
[2022-10-14] MEDS: Melatonin 3 MG TAB PO PRN (23:24)
[2022-10-15] MEDS ORDERED: diphenhydrAMINE 25 MG CAP PO SCH (00:45)
[2022-10-15] MEDS ORDERED: Calcium Carbonate 500 MG ChewTAB PO PRN (03:29)
[2022-10-15] MEDS: Ampicillin 2 GM in Sodium Chloride 0.9% 100 ML IVPB SCH ×6 (03:40→22:14)
[2022-10-15 06:10] LABS: ALT (SGPT) 57 U/L (8-55); AST (SGOT) 57 U/L (5-34); Albumin 3.1 g/dL (3.4-4.8); Alkaline Phosphatase 79 U/L (40-110); BUN (Urea Nitrogen) 8 mg/dL (8.4-25.7); Bilirubin, Total 0.2 mg/dL (0.2-1.2); Calc. Creatinine Clearance 122 mL/min (70-130); Carbon Dioxide 14 mmol/L (23-31); Chloride 109 mmol/L (98-107); Estimated GFR 95; Globulin 2.6 g/dL (2.4-3.5); Glucose 105 mg/dL (83-110); Potassium 4.3 mmol/L (3.5-5.1); Protein, Total 5.7 g/dL (5.8-8.1); Sodium 136 mmol/L (136-145)
[2022-10-15 06:28] LABS: Anion Gap 17 mmol/L (10-20)
[2022-10-15 09:04] LABS: #Monocytes 0.8 thou/uL (0.11-0.59); #Neutrophils 6.9 thou/uL (1.40-6.50); %Basophils 0.4 % (0.0-1.0); %Eosinophils 0.5 % (0.0-10.0); %Lymphocytes 20.5 % (21.0-51.0); %Neutrophils 70.6 % (42.0-75.0); Hemoglobin 11.8 g/dL (14.0-18.0); Mean Corpuscular HGB CONC 34.8 g/dL (32.0-36.0); Mean Corpuscular Hemoglobin 36.4 pg (27.0-31.0); Mean Platelet Volume 8.4 fL (7.4-10.4); Platelet Count 316 10x3/uL (130-400); RBC Distribution Width 17.4 % (11.5-14.5); Red Blood Cell (RBC) Count 3.25 mill/uL (4.70-6.10); White Blood Cell (WBC) Count 9.7 10x3/uL (4.8-10.8)
[2022-10-15] MEDS: cefTRIAXone\\ROCEPHIN 2 GM in Sodium Chloride 0.9% 100 ML IVPB SCH ×2 (09:20→20:36)
[2022-10-15] MEDS: Pregabalin 50 MG CAP PO SCH ×2 (09:21→20:36)
[2022-10-15] MEDS: Allopurinol 100 MG TAB PO SCH (09:22)
[2022-10-15] MEDS: traMADol HCl 50 MG TAB PO PRN ×2 (09:23→17:46)
[2022-10-15] MEDS: Apixaban 5 MG TAB PO SCH ×2 (09:24→20:36)
[2022-10-15] MEDS: valACYclovir 500 MG TAB PO SCH ×2 (09:24→20:36)
[2022-10-15] MEDS: Multivit, Therapeutic 1 TAB PO SCH (09:24)
[2022-10-15] MEDS: HYDROcodone/Acetaminophen 10/325 mg Tablet PO PRN ×2 (10:20→16:36)
[2022-10-15] MEDS: Tamsulosin HCl 0.4 MG CAP PO SCH (20:35)
[2022-10-15] MEDS: Melatonin 3 MG TAB PO PRN (20:36)
[2022-10-15] MEDS ORDERED: diphenhydrAMINE 50 MG/ML VIAL IVP SCH (21:00)
[2022-10-16] MEDS: Ampicillin 2 GM in Sodium Chloride 0.9% 100 ML IVPB SCH ×4 (02:57→13:43)
[2022-10-16] MEDS: traMADol HCl 50 MG TAB PO PRN (03:59)
[2022-10-16 05:52] LABS: Hemoglobin 11.4 g/dL (14.0-18.0); Mean Corpuscular HGB CONC 32.7 g/dL (32.0-36.0); Mean Corpuscular Hemoglobin 33.7 pg (27.0-31.0); Mean Platelet Volume 8.4 fL (7.4-10.4); Platelet Count 317 10x3/uL (130-400); RBC Distribution Width 17.3 % (11.5-14.5); Red Blood Cell (RBC) Count 3.39 mill/uL (4.70-6.10); White Blood Cell (WBC) Count 8.9 10x3/uL (4.8-10.8)
[2022-10-16 06:14] LABS: ALT (SGPT) 46 U/L (8-55); AST (SGOT) 36 U/L (5-34); Albumin 3.2 g/dL (3.4-4.8); Alkaline Phosphatase 68 U/L (40-110); Anion Gap 10 mmol/L (10-20); BUN (Urea Nitrogen) 8 mg/dL (8.4-25.7); Bilirubin, Total 0.3 mg/dL (0.2-1.2); Calc. Creatinine Clearance 117 mL/min (70-130); Calcium 8.9 mg/dL (7.8-10.44); Carbon Dioxide 25 mmol/L (23-31); Chloride 103 mmol/L (98-107); Estimated GFR 94; Globulin 2.6 g/dL (2.4-3.5); Glucose 112 mg/dL (83-110); Potassium 4.1 mmol/L (3.5-5.1); Protein, Total 5.8 g/dL (5.8-8.1); Sodium 134 mmol/L (136-145)
[2022-10-16 06:22] LABS: Eosinophils 1 % (0-10); Lymphocytes 15 % (21-51); MDiff Complete? YES; Monocytes 7 % (0-10); Neutrophil 77 % (42-75)
[2022-10-16] MEDS: HYDROcodone/Acetaminophen 10/325 mg Tablet PO PRN (06:59)
[2022-10-16] MEDS: cefTRIAXone\\ROCEPHIN 2 GM in Sodium Chloride 0.9% 100 ML IVPB SCH (09:38)
[2022-10-16] MEDS: valACYclovir 500 MG TAB PO SCH (09:38)
[2022-10-16] MEDS: Pregabalin 50 MG CAP PO SCH (09:39)
[2022-10-16] MEDS: Multivit, Therapeutic 1 TAB PO SCH (09:40)
[2022-10-16] MEDS: Allopurinol 100 MG TAB PO SCH (09:40)
[2022-10-16] MEDS: Apixaban 5 MG TAB PO SCH (09:41)
[2022-10-16 11:50] VITALS: TEMP 97.5
[2022-10-16 12:36] VITALS: BP 112/65
[2022-10-16] MEDS ORDERED: diphenhydrAMINE 25 MG CAP PO PRN (21:00)
== END 2022-10-16 14:45 | DRG 872 ==
LOC: ERS 21:15 → NEURO 10-06 00:30 → OBSVTOIN 10-06 15:36
PROVIDERS: ADMIT Internal Medicine; ATTEND Internal Medicine
PROC: 3E03329 Introduction of Other Anti-infective into Peripheral Vein, Percutaneous Approach (ICD-10-PCS; principal; 2022-10-06)
PROC: B24BZZ4 Ultrasonography of Heart with Aorta, Transesophageal (ICD-10-PCS; 2022-10-11)
DX: A41.81 Sepsis due to Enterococcus (principal); G61.0 Guillain-Barre syndrome; Z94.81 Bone marrow transplant status; N17.9 Acute kidney failure, unspecified; I48.19 Other persistent atrial fibrillation; C90.00 Multiple myeloma not having achieved remission; E87.1 Hypo-osmolality and hyponatremia; E87.20 Acidosis, unspecified; I25.10 Atherosclerotic heart disease of native coronary artery without angina pectoris; E78.5 Hyperlipidemia, unspecified; N40.0 Benign prostatic hyperplasia without lower urinary tract symptoms; D64.9 Anemia, unspecified; Z20.822 Contact with and (suspected) exposure to COVID-19; G89.29 Other chronic pain; E87.6 Hypokalemia; Z79.899 Other long term (current) drug therapy
CPT/HCPCS: 36415; 70450; 71045; 71275; 72157; 72158; 74177; 80053; 80202; 81003; 81015; 83605; 83735; 83880; 84443; 84484; 85025; 87040; 87077; 87086; 87149; 87186; 93005; 93010; 93306; 93312; 94640; 94760; 96365; 96367; 96375; 96376; A9579; G0378; J0290; J0456; J0692; J0696; J0780; J1200; J1580; J1885; J2270; J2272; J2704; J2765; J2930; J3030; J3370; J3370-JW; J3475; J3490; J7030; J7050; J7620; Q9967

== ENCOUNTER 2022-12-14 14:30 | Outpatient (CLI) | payer MEDICARE, BC, OTHER | END 2022-12-14 14:31 | disposition home or self-care (01) | LOC: RAD 14:30 | PROVIDERS: ATTEND Internal Medicine Nephrology | DX: N18.30 Chronic kidney disease, stage 3 unspecified (principal) | CPT/HCPCS: 71046 ==

== ENCOUNTER 2023-03-21 09:30 | Outpatient (CLI) | payer MEDICARE, BC, OTHER | END 2023-03-21 09:31 | disposition home or self-care (01) | LOC: PET 09:30 | PROVIDERS: ATTEND Internal Medicine Hematology & Oncology | DX: C90.00 Multiple myeloma not having achieved remission (principal); C79.51 Secondary malignant neoplasm of bone; D70.1 Agranulocytosis secondary to cancer chemotherapy | CPT/HCPCS: 78816; 80053; 82248; 82784 ×3; 83615; 83883 ×2; 84100; 84155; 84165; 84550; 85025; A9552 ==

== ENCOUNTER 2023-05-16 08:22 | Day surgery (SDC) | payer MEDICARE, BC, OTHER ==
[2023-05-16 10:32] VITALS: BP 117/70; TEMP 98.1
== END 2023-05-16 11:00 | disposition home or self-care (01) ==
LOC: CT 08:22
PROVIDERS: ATTEND Internal Medicine Hematology & Oncology
PROC: 079T3ZX Drainage of Bone Marrow, Percutaneous Approach, Diagnostic (ICD-10-PCS; principal; 2023-05-16)
DX: C90.00 Multiple myeloma not having achieved remission (principal); C79.51 Secondary malignant neoplasm of bone; I10 Essential (primary) hypertension; E78.2 Mixed hyperlipidemia; I25.10 Atherosclerotic heart disease of native coronary artery without angina pectoris; K21.9 Gastro-esophageal reflux disease without esophagitis; I48.91 Unspecified atrial fibrillation; Z79.01 Long term (current) use of anticoagulants; Z79.899 Other long term (current) drug therapy; Z87.891 Personal history of nicotine dependence
CPT/HCPCS: 20225; 36415; 77012; 85097; 85610; 85730; 88184; 88237; 88264; 88280; 88305; 88311